=== PATIENT | male | born 1935 | race Caucasian/White ===

== ENCOUNTER 2022-10-16 11:44 | Emergency (ER) | payer MEDICARE, OTHER ==
[2022-10-16 12:03] VITALS: RESP 16
[2022-10-16] MEDS ORDERED: KETOROLAC 15 MG/ML 1 ML VIAL IM STA (12:33)
--- NOTE | 2022-10-16 12:38 | ED ---
General Adult HPI - General Chief complaint: Back Pain/Injury Stated complaint: fall Time Seen by Provider: 10/16/22 12:15 Source: patient, RN notes reviewed, old records reviewed Mode of arrival: ambulatory Limitations: no limitations - History of Present Illness Initial comments: This is an 87-year-old male who presents emergency Department complaining of lower back pain both on the right than the left. Patient denies any central back pain. Patient denies any rib pain. Patient denies hitting his head or hurting his neck. Patient denies any headache patient denies numbness weakness. Patient denies any chest pain. Patient denies any extremity pain. Patient states he fell after he lost his balance on . - Related Data Allergies Allergy/AdvReac Type Severity Reaction Status Date / Time No Known Allergies Allergy Verified 10/16/22 12:03 Review of Systems ROS Statement: Those systems with pertinent positive or pertinent negative responses have been documented in the HPI. ROS Other: All systems not noted in ROS Statement are negative. Past Medical History Additional Past Medical History / Comment(s): polio History of Any Multi-Drug Resistant Organisms: None Reported Past Surgical History: Appendectomy Past Psychological History: No Psychological Hx Reported Smoking Status: Never smoker Past Alcohol Use History: None Reported Past Drug Use History: None Reported General Exam - General Exam Comments Initial Comments: GENERAL: Patient is well-developed and well-nourished. Patient is nontoxic and well- hydrated and is in mild distress. ENT: Neck is soft and supple. No significant lymphadenopathy is noted. Oropharynx is clear. Moist mucous membranes. Neck has full range of motion without eliciting any pain. EYES: The sclera were anicteric and conjunctiva were pink and moist. Extraocular movements were intact and pupils were equal round and reactive to light. Eyelids were unremarkable. PULMONARY: Unlabored respirations. Good breath sounds bilaterally. No audible rales rhonchi or wheezing was noted. CARDIOVASCULAR: There is a regular rate and rhythm without any murmurs gallops or rubs. ABDOMEN: Soft and nontender with normal bowel sounds. SKIN: Skin is clear with no lesions or rashes and otherwise unremarkable. NEUROLOGIC: Patient is alert and oriented x3. Cranial nerves II through XII are grossly intact. Motor and sensory are also intact. Normal speech, volume and content. Symmetrical smile. MUSCULOSKELETAL: Normal extremities with adequate strength and full range of motion. Patient has some tenderness bilateral lower back. LYMPHATICS: No significant lymphadenopathy is noted PSYCHIATRIC: Normal psychiatric evaluation. Limitations: no limitations Course Vital Signs 10/16/22 11:58 Temperature 98.4 F Pulse Rate 56 L Respiratory 16 Rate Blood Pressure 110/74 O2 Sat by Pulse 98 Oximetry Medical Decision Making - Medical Decision Making Was pt. sent in by a medical professional or institution (, PA, STUD MASTER/MISTRESS, urgent care, hospital, or alf...) When possible be specific @ -No Did you speak to anyone other than the patient for history (EMS, parent, family, police, friend...)? What history was obtained from this source @ -No Did you review nursing and triage notes (agree or disagree)? Why? @ -I reviewed and agree with nursing and triage notes Were old charts reviewed (outside hosp., previous admission, EMS record, old EKG, old radiological studies, urgent care reports/EKG's, alf records)? Report findings @ -No old charts were reviewed Differential Diagnosis (chest pain, altered mental status, abdominal pain women, abdominal pain men, vaginal bleeding, weakness, fever, dyspnea, syncope, headache, dizziness, GI bleed, back pain, seizure, CVA, palpatations, mental health, musculoskeletal)? @ -Differential Musculoskeletal Muscular strain, contusion, ligament sprain, fracture, arthritis, septic arthritis, bursitis, cellulitis, muscle spasm, nerve compression, DVT, arterial occlusion, herpes zoster, electrolyte abnormality, tumor.... This is not meant to be in all inclusive list EKG interpreted by me (3pts min.). @ -As above X-rays interpreted by me (1pt min.). @ -X-ray of the pelvis and lumbosacral spine showed no acute abnormality. Lumbosacral spine showed quite a bit sclerotic disease CT interpreted by me (1pt min.). @ -None done U/S interpreted by me (1pt. min.). @ -None done What testing was considered but not performed or refused? (CT, X-rays, U/S, labs)? Why? @ -None What meds were considered but not given or refused? Why? @ -None Did you discuss the management of the patient with other professionals (professionals i.e. , CALISTA, STUD MASTER/MISTRESS, lab, RT, psych nurse, social services, svp research & ebusiness operations, teacher, custody officer, rn case manager hospice)? Give summary @ -No Was smoking cessation discussed for >3mins.? @ -No Was critical care preformed (if so, how long)? @ -No Were there social determinants of health that impacted care today? How? (Homelessness, low income, unemployed, alcoholism, drug addiction, transportation, low edu. Level, literacy, decrease access to med. care, [facility], rehab)? @ -No Was there de-escalation of care discussed even if they declined (Discuss DNR or withdrawal of care, Hospice)? DNR status @ -No What co-morbidities impacted this encounter? (DM, HTN, Smoking, COPD, CAD, Cancer, CVA, ARF, Chemo, Hep., AIDS, mental health diagnosis, sleep apnea, morbid obesity)? @ -None Was patient admitted / discharged? Hospital course, mention meds given and route, prescriptions, significant lab abnormalities, going to OR and other pertinent info. @ -Ages x-rays were negative for acute fractures. Patient did receive Toradol and it did help a little. Undiagnosed new problem with uncertain prognosis? @ -No Drug Therapy requiring intensive monitoring for toxicity (Heparin, Nitro, Insulin, Cardizem)? @ -No Were any procedures done? @ -No Diagnosis/symptom? @ -Lumbosacral strain Acute, or Chronic, or Acute on Chronic? @ -Acute Uncomplicated (without systemic symptoms) or Complicated (systemic symptoms)? @ -Uncomplicated Side effects of treatment? @ -No Exacerbation, Progression, or Severe Exacerbation? @ -No Poses a threat to life or bodily function? How? (Chest pain, [place], [place], pneumonia, PE, COPD, DKA, ARF, appy, cholecystitis, CVA, Diverticulitis, Homicidal, Suicidal, threat to staff... and all critical care pts) @ -No Disposition Clinical Impression: Strain of lumbar region Disposition: HOME SELF-CARE Condition: Good Instructions (If sedation given, give patient instructions): Low Back Strain (ED) Additional Instructions: Patient should take Motrin and Tylenol when necessary for pain Patient should return if there is any worsening or new symptoms Is patient prescribed a controlled substance at d/c from ED?: No Referrals: Bk Aponte Jr, [Primary Care Provider] - 1-2 days Time of Disposition: 13:26
--- NOTE | 2022-10-16 13:29 | XR ---
EXAMINATION TYPE: XR pelvis AP view DATE OF EXAM: 10/16/2022 CLINICAL HISTORY: pain TECHNIQUE: Single view the pelvis is submitted. FINDINGS: No evidence for fracture, dislocation or bony lesion. Joint spaces are well-preserved. S I joints appear symmetric. IMPRESSION: 1. No acute fracture or dislocation seen. ICD 10 NO FRACTURE, INITIAL EVALUATION
--- NOTE | 2022-10-16 13:34 | XR ---
EXAMINATION TYPE: XR lumbosacral spine min 4V DATE OF EXAM: 10/16/2022 CLINICAL HISTORY: pain COMPARISON: NONE TECHNIQUE: Frontal, lateral, and oblique images of the lumbar spine are obtained. FINDINGS: There are 5 lumbar type vertebral bodies identified. Loss of vertebral body height at L2 o f uncertain age and/or etiology mild in degree. Severe multilevel degenerative disc space narrowing t hinning from L2 through L5 S1. Right renal calculus suggested. IMPRESSION: Mild Loss of vertebral body height at L2 vertebral body of uncertain age and/or etiology .
[2022-10-16 13:58] VITALS: BP 112/68; PULSE 61; TEMP 98
== END 2022-10-16 14:33 | disposition home or self-care (01) ==
LOC: EC 11:44
DX: S39.012A Strain of muscle, fascia and tendon of lower back, initial encounter (principal); W18.30XA Fall on same level, unspecified, initial encounter
CPT/HCPCS: 72110; 72170; 99283; 96372; J1885

== ENCOUNTER → 2023-04-11 | Outpatient (CLI) | payer MEDICARE, OTHER ==
[2023-04-11 16:21] LABS: HCT 42.4 % (39.6-50.0); HGB 13.9 g/dL (13.0-17.0); MCH 32.4 pg (27.0-32.0); MCHC 32.8 g/dL (32.0-37.0); MCV 98.8 FL (80.0-97.0); Mean Platelet Volume 9.5 FL (9.5-12.2); NRBC Per 100 WBC 0 X 10*3/uL (0.00-0.01); Platelet Count 189 X 10*3/uL (140-440); RBC 4.29 X 10*6/uL (4.40-5.60); RDW 14.1 % (11.5-14.5); WBC 4.98 X 10*3/uL (4.50-10.00)
[2023-04-11 16:33] LABS: Blood Urea Nitrogen 25.8 mg/dL (9.0-27.0); Carbon Dioxide 22.6 mmol/L (21.6-31.8); Chloride 107 mmol/L (96-109); Potassium 4.3 mmol/L (3.5-5.5); Sodium 143 mmol/L (135-145)
== END | disposition home or self-care (01) ==
LOC: LABWHC1 11:04
PROVIDERS: ATTEND Internal Medicine Cardiovascular Disease
DX: I48.11 Longstanding persistent atrial fibrillation (principal)
CPT/HCPCS: 36415; 80051; 82565; 84443; 84520; 85027

== ENCOUNTER 2024-05-06 11:21 | Inpatient (IN) | payer MEDICARE, OTHER ==
--- NOTE | 2024-05-06 12:01 | ED ---
General Adult HPI - General Chief complaint: Urogenital Stated complaint: Abd pain,poss UTI Time Seen by Provider: 05/06/24 11:25 Source: patient, EMS, RN notes reviewed, old records reviewed Mode of arrival: EMS Limitations: no limitations - History of Present Illness Initial comments: This is an 88-year-old male who presents to the emergency department because he was having dark urine and complains of lower abdominal pain. Patient is a poor historian. Patient was unaware that he had a fever. Patient denied any chest pain or difficulty breathing. Patient had any cough. Patient denies any trauma. Patient denies any history of A-fib or irregular heartbeat - Related Data Home Medications Medication Instructions Recorded Confirmed Lovastatin [Mevacor] 20 mg PO HS 05/06/24 05/06/24 Metoprolol Succinate [Toprol XL] 50 mg PO DAILY 05/06/24 05/06/24 amLODIPine [Norvasc] 5 mg PO DAILY 05/06/24 05/06/24 Allergies Allergy/AdvReac Type Severity Reaction Status Date / Time No Known Allergies Allergy Verified 05/06/24 14:28 Review of Systems ROS Statement: Those systems with pertinent positive or pertinent negative responses have been documented in the HPI. ROS Other: All systems not noted in ROS Statement are negative. Past Medical History Additional Past Medical History / Comment(s): polio History of Any Multi-Drug Resistant Organisms: None Reported Past Surgical History: Appendectomy Past Psychological History: No Psychological Hx Reported Smoking Status: Never smoker Past Alcohol Use History: None Reported Past Drug Use History: None Reported General Exam - General Exam Comments Initial Comments: GENERAL: Patient is well-developed and well-nourished. Patient is nontoxic and well- hydrated and is in no acute distress. ENT: Neck is soft and supple. No significant lymphadenopathy is noted. Oropharynx is clear. Moist mucous membranes. Neck has full range of motion without eliciting any pain. EYES: The sclera were anicteric and conjunctiva were pink and moist. Extraocular movements were intact and pupils were equal round and reactive to light. Eyelids were unremarkable. PULMONARY: Unlabored respirations. Good breath sounds bilaterally. No audible rales rhonchi or wheezing was noted. CARDIOVASCULAR: Patient is tachycardic with an irregular rhythm. At 155 bpm ABDOMEN: Soft and nontender with normal bowel sounds. SKIN: Skin is clear with no lesions or rashes and otherwise unremarkable. NEUROLOGIC: Patient is alert and oriented x3. Cranial nerves II through XII are grossly intact. Motor and sensory are also intact. Normal speech, volume and content. Symmetrical smile. MUSCULOSKELETAL: Normal extremities with adequate strength and full range of motion. LYMPHATICS: No significant lymphadenopathy is noted PSYCHIATRIC: Normal psychiatric evaluation. Limitations: no limitations Course Vital Signs 05/06/24 05/06/24 05/06/24 11:22 11:38 12:39 Temperature 100.7 F H Pulse Rate 147 H 119 H Pulse Rate [ 116 H Historical Manuscripts Curator ] Respiratory 20 22 Rate Blood Pressure 108/78 102/81 O2 Sat by Pulse 95 96 Oximetry 05/06/24 05/06/24 13:26 13:32 Temperature 98.4 F Pulse Rate 81 Pulse Rate [ Historical Manuscripts Curator ] Respiratory 18 Rate Blood Pressure 88/56 O2 Sat by Pulse 96 Oximetry Medical Decision Making - Medical Decision Making EKG shows atrial fibrillation with rapid ventricular response at 155 bpm QRS is 85 QT interval 364 QTc is 351. Patient's EKG shows no ST segment elevation or depression EKG is interpreted by myself EKG shows atrial fibrillation 89 bpm QRS is 89 QT interval 3 9 QTc is 436. Patient's EKG shows no ST segment ovation or depression Was pt. sent in by a medical professional or institution (, PA, CHARGE ENTRY CLERK, urgent care, hospital, or usp...) When possible be specific @ -No Did you speak to anyone other than the patient for history (EMS, parent, family, police, friend...)? What history was obtained from this source @ -No Did you review nursing and triage notes (agree or disagree)? Why? @ -I reviewed and agree with nursing and triage notes Were old charts reviewed (outside hosp., previous admission, EMS record, old EKG, old radiological studies, urgent care reports/EKG's, usp records)? Report findings @ -No old charts were reviewed Differential Diagnosis? @ -Urinary tract infection, pyelonephritis, cystitis, this is not an all-incl usive list EKG interpreted by me (3pts min.). @ -As above X-rays interpreted by me (1pt min.). @ -Chest x-ray shows no acute abnormality CT interpreted by me (1pt min.). @ -None done U/S interpreted by me (1pt. min.). @ -None done What testing was considered but not performed or refused? (CT, X-rays, U/S, labs)? Why? @ -None What meds were considered but not given or refused? Why? @ -None Did you discuss the management of the patient with other professionals (professionals i.e. , PA, CHARGE ENTRY CLERK, lab, RT, psych nurse, medical social worker, farebox repairer, teacher, accounts officer, case management rn)? Give summary @ -I spoke with Dr. Rivers he agreed to admit the patient Was smoking cessation discussed for >3mins.? @ -No Was critical care preformed (if so, how long)? @ -35 minutes Were there social determinants of health that impacted care today? How? (Homelessness, low income, unemployed, alcoholism, drug addiction, transportation, low edu. Level, literacy, decrease access to med. care, residential, rehab)? @ -No Was there de-escalation of care discussed even if they declined (Discuss DNR or withdrawal of care, Hospice)? DNR status @ -No What co-morbidities impacted this encounter? (DM, HTN, Smoking, COPD, CAD, C[place] r, CVA, ARF, Chemo, Hep., AIDS, mental health diagnosis, sleep apnea, morbid obesity)? @ -None Was patient admitted / discharged? Hospital course, mention meds given and route, prescriptions, significant lab abnormalities, going to OR and other pertinent info. @ -Patient was initially in A-fib with rapid ventricular sponsor which was new onset. Patient was placed on heparin. Patient was started on Cardizem initially but patient heart rate slowed down and blood pressure dropped also Cardizem was stopped. Patient had a urinary tract infection so patient was given Rocephin 2 g IV push. Patient will be admitted for A-fib with rapid ventricular response that is new onset and a urinary tract infection. Undiagnosed new problem with uncertain prognosis? @ -No Drug Therapy requiring intensive monitoring for toxicity (Heparin, Nitro, Insulin, Cardizem)? @ -No Were any procedures done? @ -No Diagnosis/symptom? @ -Urinary tract infection Acute, or Chronic, or Acute on Chronic? @ -Acute Uncomplicated (without systemic symptoms) or Complicated (systemic symptoms)? @ -Comp Side effects of treatment? @ -No Exacerbation, Progression, or Severe Exacerbation? @ -No Poses a threat to life or bodily function? How? (Chest pain, [place], [place], pneumonia, PE, COPD, DKA, ARF, appy, cholecystitis, CVA, Diverticulitis, Homicidal, Suicidal, threat to staff... and all critical care pts) @ -Yes this can lead to sepsis and endorgan dysfunction Diagnosis/symptom? @ -A-fib with rapid ventricular response new onset Acute, or Chronic, or Acute on Chronic? @ -Acute Uncomplicated (without systemic symptoms) or Complicated (systemic symptoms)? @ -Complicated Side effects of treatment? @ -None Exacerbation, Progression, or Severe Exacerbation] @ -No Poses a threat to life or bodily function? @ -Yes this can lead to poor perfusion and endorgan dysfunction - Lab Data Result diagrams: 05/06/24 11:59 05/06/24 11:59 Lab Results 05/06/24 05/06/24 05/06/24 Range/Units 11:59 11:59 11:59 WBC 5.7 (3.8-10.6) k/uL RBC 3.85 L (4.30-5.90) m/uL Hgb 12.5 L (13.0-17.5) gm/dL Hct 37.4 L (39.0-53.0) % MCV 97.3 (80.0-100.0) fL MCH 32.4 (25.0-35.0) pg MCHC 33.3 (31.0-37.0) g/dL RDW 14.3 (11.5-15.5) % Plt Count 272 (150-450) k/uL MPV 7.8 Neutrophils % 93 % Lymphocytes % 4 % Monocytes % 1 % Eosinophils % 3 % Basophils % 0 % Neutrophils # 5.3 (1.3-7.7) k/uL Lymphocytes # 0.2 L (1.0-4.8) k/uL Monocytes # 0.0 (0-1.0) k/uL Eosinophils # 0.2 (0-0.7) k/uL Basophils # 0.0 (0-0.2) k/uL PT 12.2 (10.0-12.5) sec INR 1.1 (<1.2) APTT 18.8 L (22.0-30.0) sec Sodium (137-145) mmol/L Potassium (3.5-5.1) mmol/L Chloride (98-107) mmol/L Carbon Dioxide (22-30) mmol/L Anion Gap mmol/L BUN (9-20) mg/dL Creatinine (0.66-1.25) mg/dL Est GFR (CKD-EPI)AfAm (>60 ml/min/1.73 sqM) Est GFR (CKD-EPI)NonAf (>60 ml/min/1.73 sqM) Glucose (74-99) mg/dL Plasma Lactic Acid Braxton (0.7-2.0) mmol/L Calcium (8.4-10.2) mg/dL Magnesium (1.6-2.3) mg/dL Total Bilirubin (0.2-1.3) mg/dL AST (17-59) U/L ALT (4-49) U/L Alkaline Phosphatase (38-126) U/L Troponin I (0.000-0.034) ng/mL Total Protein (6.3-8.2) g/dL Albumin (3.5-5.0) g/dL TSH (0.465-4.680) mIU/L Urine Color Yellow Urine Appearance Cloudy (Clear) Urine pH 5.5 (5.0-8.0) Ur Specific [place] 1.014 (1.001-1.035) Urine Protein 1+ H (Negative) Urine Glucose (UA) Negative (Negative) Urine Ketones Negative (Negative) Urine Blood Large H (Negative) Urine Nitrite Positive (Negative) Urine Bilirubin Negative (Negative) Urine Urobilinogen <2.0 (<2.0) mg/dL Ur Leukocyte Esterase Large H (Negative) Urine RBC >182 H (0-5) /hpf Urine WBC 49 H (0-5) /hpf Ur Squamous Epith Cells <1 (0-4) /hpf Urine Bacteria Rare H (None) /hpf Hyaline Casts 1 (0-2) /lpf Urine Yeast (Budding) Few H (None) /hpf Influenza Type A (PCR) (Not Detectd) Influenza Type B (PCR) (Not Detectd) RSV (PCR) (Not Detectd) SARS-CoV-2 (PCR) (Not Detectd) 05/06/24 05/06/24 05/06/24 Range/Units 11:59 11:59 11:59 WBC (3.8-10.6) k/uL RBC (4.30-5.90) m/uL Hgb (13.0-17.5) gm/dL Hct (39.0-53.0) % MCV (80.0-100.0) fL MCH (25.0-35.0) pg MCHC (31.0-37.0) g/dL RDW (11.5-15.5) % Plt Count (150-450) k/uL MPV Neutrophils % % Lymphocytes % % Monocytes % % Eosinophils % % Basophils % % Neutrophils # (1.3-7.7) k/uL Lymphocytes # (1.0-4.8) k/uL Monocytes # (0-1.0) k/uL Eosinophils # (0-0.7) k/uL Basophils # (0-0.2) k/uL PT (10.0-12.5) sec INR (<1.2) APTT (22.0-30.0) sec Sodium 139 (137-145) mmol/L Potassium 4.5 (3.5-5.1) mmol/L Chloride 110 H (98-107) mmol/L Carbon Dioxide 17 L (22-30) mmol/L Anion Gap 12 mmol/L BUN 26 H (9-20) mg/dL Creatinine 0.94 (0.66-1.25) mg/dL Est GFR (CKD-EPI)AfAm 85 (>60 ml/min/1.73 sqM) Est GFR (CKD-EPI)NonAf 73 (>60 ml/min/1.73 sqM) Glucose 99 (74-99) mg/dL Plasma Lactic Acid Braxton (0.7-2.0) mmol/L Calcium 9.6 (8.4-10.2) mg/dL Magnesium 1.7 (1.6-2.3) mg/dL Total Bilirubin 1.5 H (0.2-1.3) mg/dL AST 29 (17-59) U/L ALT 23 (4-49) U/L Alkaline Phosphatase 87 (38-126) U/L Troponin I 0.041 H* (0.000-0.034) ng/mL Total Protein 6.4 (6.3-8.2) g/dL Albumin 4.1 (3.5-5.0) g/dL TSH 3.380 (0.465-4.680) mIU/L Urine Color Urine Appearance (Clear) Urine pH (5.0-8.0) Ur Specific [place] (1.001-1.035) Urine Protein (Negative) Urine Glucose (UA) (Negative) Urine Ketones (Negative) Urine Blood (Negative) Urine Nitrite (Negative) Urine Bilirubin (Negative) Urine Urobilinogen (<2.0) mg/dL Ur Leukocyte Esterase (Negative) Urine RBC (0-5) /hpf Urine WBC (0-5) /hpf Ur Squamous Epith Cells (0-4) /hpf Urine Bacteria (None) /hpf Hyaline Casts (0-2) /lpf Urine Yeast (Budding) (None) /hpf Influenza Type A (PCR) Not Detected (Not Detectd) Influenza Type B (PCR) Not Detected (Not Detectd) RSV (PCR) Not Detected (Not Detectd) SARS-CoV-2 (PCR) Not Detected (Not Detectd) 05/06/24 Range/Units 14:24 WBC (3.8-10.6) k/uL RBC (4.30-5.90) m/uL Hgb (13.0-17.5) gm/dL Hct (39.0-53.0) % MCV (80.0-100.0) fL MCH (25.0-35.0) pg MCHC (31.0-37.0) g/dL RDW (11.5-15.5) % Plt Count (150-450) k/uL MPV Neutrophils % % Lymphocytes % % Monocytes % % Eosinophils % % Basophils % % Neutrophils # (1.3-7.7) k/uL Lymphocytes # (1.0-4.8) k/uL Monocytes # (0-1.0) k/uL Eosinophils # (0-0.7) k/uL Basophils # (0-0.2) k/uL PT (10.0-12.5) sec INR (<1.2) APTT (22.0-30.0) sec Sodium (137-145) mmol/L Potassium (3.5-5.1) mmol/L Chloride (98-107) mmol/L Carbon Dioxide (22-30) mmol/L Anion Gap mmol/L BUN (9-20) mg/dL Creatinine (0.66-1.25) mg/dL Est GFR (CKD-EPI)AfAm (>60 ml/min/1.73 sqM) Est GFR (CKD-EPI)NonAf (>60 ml/min/1.73 sqM) Glucose (74-99) mg/dL Plasma Lactic Acid Braxton 1.6 (0.7-2.0) mmol/L Calcium (8.4-10.2) mg/dL Magnesium (1.6-2.3) mg/dL Total Bilirubin (0.2-1.3) mg/dL AST (17-59) U/L ALT (4-49) U/L Alkaline Phosphatase (38-126) U/L Troponin I (0.000-0.034) ng/mL Total Protein (6.3-8.2) g/dL Albumin (3.5-5.0) g/dL TSH (0.465-4.680) mIU/L Urine Color Urine Appearance (Clear) Urine pH (5.0-8.0) Ur Specific [place] (1.001-1.035) Urine Protein (Negative) Urine Glucose (UA) (Negative) Urine Ketones (Negative) Urine Blood (Negative) Urine Nitrite (Negative) Urine Bilirubin (Negative) Urine Urobilinogen (<2.0) mg/dL Ur Leukocyte Esterase (Negative) Urine RBC (0-5) /hpf Urine WBC (0-5) /hpf Ur Squamous Epith Cells (0-4) /hpf Urine Bacteria (None) /hpf Hyaline Casts (0-2) /lpf Urine Yeast (Budding) (None) /hpf Influenza Type A (PCR) (Not Detectd) Influenza Type B (PCR) (Not Detectd) RSV (PCR) (Not Detectd) SARS-CoV-2 (PCR) (Not Detectd) Disposition Clinical Impression: Atrial fibrillation with rapid ventricular response, New onset a-fib, Urinary tract infection Disposition: ADMITTED IP TO THIS HOSP Referrals: Bk Aponte Jr, [Primary Care Provider] - 1-2 days Time of Disposition: 14:54
[2024-05-06] MEDS: SODIUM CHLORIDE 0.9% 1,000 ML IV STA (12:11)
[2024-05-06 12:13] LABS: Basophils % (A) 0 %; Eosinophils # (A) 0.2 k/uL (0-0.7); Eosinophils % (A) 3 %; HCT 37.4 % (39.0-53.0); HGB 12.5 gm/dL (13.0-17.5); Lymphocytes # (A) 0.2 k/uL (1.0-4.8); Lymphocytes % (A) 4 %; MCH 32.4 pg (25.0-35.0); MCHC 33.3 g/dL (31.0-37.0); MCV 97.3 fL (80.0-100.0); Mean Platelet Volume 7.8; Monocytes % (A) 1 %; Neutrophils # (A) 5.3 k/uL (1.3-7.7); Neutrophils % (A) 93 %; Platelet Count 272 k/uL (150-450); RBC 3.85 m/uL (4.30-5.90); RDW 14.3 % (11.5-15.5); WBC 5.7 k/uL (3.8-10.6)
[2024-05-06] MEDS: SODIUM CHLORIDE 0.9% 1,000 ML IV ONE ×3 (12:14→15:15)
[2024-05-06] MEDS: ACETAMINOPHEN TAB 500 MG TAB PO STA (12:14)
[2024-05-06] MEDS: IBUPROFEN 600 MG TAB PO STA (12:15)
[2024-05-06] MEDS: DILTIAZEM 125 MG in SODIUM CHLORIDE 0.9% 100 ML IV SCH (12:18)
[2024-05-06 12:22] LABS: ALT 23 U/L (4-49); AST 29 U/L (17-59); African American GFR (CKD) 85 (>60 ml/min/1.73 sqM); Albumin 4.1 g/dL (3.5-5.0); Alkaline Phosphatase 87 U/L (38-126); Anion Gap 12 mmol/L; Blood Urea Nitrogen 26 mg/dL (9-20); Calcium 9.6 mg/dL (8.4-10.2); Carbon Dioxide 17 mmol/L (22-30); Chloride 110 mmol/L (98-107); Glucose 99 mg/dL (74-99); Magnesium 1.7 mg/dL (1.6-2.3); Non-African American GFR(CKD) 73 (>60 ml/min/1.73 sqM); Potassium 4.5 mmol/L (3.5-5.1); Sodium 139 mmol/L (137-145); Total Bilirubin 1.5 mg/dL (0.2-1.3); Total Protein 6.4 g/dL (6.3-8.2)
[2024-05-06] MEDS: DILTIAZEM DRIP BOLUS FROM BAG 1 MG SOLN IV ONE (12:22)
--- NOTE | 2024-05-06 12:36 | XR ---
EXAMINATION TYPE: XR chest 2V DATE OF EXAM: 05/06/2024 12:09 PM CLINICAL INDICATION:Male, 88 years old with history of dysrhythmia; [facility] COMPARISON: None TECHNIQUE: XR chest 2V Frontal view of the chest. FINDINGS: Lungs/Pleura: Mild elevation of the left hemidiaphragm. Right lung atelectasis. Prominent interstitia l markings bilaterally likely chronic in nature. No pneumothorax. Pulmonary vascularity: Unremarkable. Heart/mediastinum: Cardiomediastinal silhouette is unremarkable. Musculoskeletal: No acute osseous pathology. Other findings: None IMPRESSION: Right lung atelectasis with no acute cardiopulmonary disease/process. [facility], , 05/06/2024 12:34 PM
[2024-05-06 12:39] LABS: INR 1.1 (<1.2); Prothrombin Time 12.2 sec (10.0-12.5)
[2024-05-06] MEDS: MAGNESIUM SULFATE-D5W PMX 1 GM in DEXTROSE/WATER 1 100ML.BAG IVPB SCH (12:39)
[2024-05-06 12:45] LABS: Partial Thromboplastin Time 18.8 sec (22.0-30.0)
[2024-05-06 14:08] LABS: Appearance,Urine Cloudy (Clear); Bacteria,Urine Rare /hpf; Bilirubin,Urine Negative (Negative); Blood,Urine Large (Negative); Budding Yeast,Urine Few /hpf; Color,Urine Yellow; Glucose,Urine (UA) Negative (Negative); Hyaline Casts,Urine 1 /lpf (0-2); Ketones,Urine Negative (Negative); Leukocyte Esterase,Urine Large (Negative); Nitrite,Urine Positive (Negative); PH, Urine 5.5 (5.0-8.0); Protein,Urine 1+ (Negative); RBC,Urine >182 /hpf (0-5); Specific Gravity,Urine 1.014 (1.001-1.035); Squamous Epithelial Cell,Urine <1 /hpf (0-4); Urobilinogen,Urine <2.0 mg/dL (<2.0); WBC,Urine 49 /hpf (0-5)
[2024-05-06] MEDS: SODIUM CHLORIDE 0.9% 500 ML 500 ML IV ONE (14:32)
[2024-05-06] MEDS: cefTRIAXone IN SWFI 1,000 MG/10 ML SYRINGE IVP STA (14:32)
[2024-05-06] MEDS: HYDROCORTISONE SUCCINATE 100 MG/2 ML VIAL IV STA (14:33)
[2024-05-07] MEDS: HEPARIN SOD,PORK IN 0.45% NACL 25,000 UNIT in 0.45% NACL 1 250ML.BAG IV SCH (02:47)
[2024-05-07] MEDS: HEPARIN SODIUM 1,000 UN/ML (10ML VL) IV ONE (02:50)
--- NOTE | 2024-05-07 11:14 | P.CRDCN ---
History of Present Illness Consult date: 05/07/24 History of present illness: HISTORY OF PRESENTING ILLNESS 88-year-old who is new to our medical system. Patient is not able to provide any medical history because of his encephalopathy and prior history of dementia. History is obtained from medical charts. Apparently patient was having dark urine, lower abdominal pain. This was the reason for presentation to the [facility]. On admission he was noticed to be in atrial fibrillation with RVR. He also had elevation of troponin enzyme 0.04, 0.106. Social Hx: Family Hx: non contributary to current clinical scenario REVIEW OF SYSTEMS 14 point review of system is negative except what is mentioned above in HPI. PHYSICAL EXAMINATION Neck: Brisk carotid upstroke, no jugular venous distention. Lungs: Minimal crackles audible in lung bases Heart: Irregularly irregular pulse, mild systolic murmur audible Abdomen: Soft nontender, positive bowel sounds. Extremities: 1+ pitting edema in bilateral lower extremity. Warm to touch, clammy.. Neuro: Alert, not oriented to time place and person. Detailed neuro exam was not performed. ASSESSMENT Elevated troponin, likely type II NSTEMI in setting of demand supply mismatch Persistent atrial fibrillation. RVR on admission, currently rate controlled Mild CHF exacerbation Acute metabolic encephalopathy UTI Dementia Frailty PLAN Continue IV heparin drip for 48 hours Aspirin 81 mg, Lipitor 40 mg, Add metoprolol succinate 25 mg daily. Obtain updated echocardiogram Obtain NT-proBNP levels, magnesium levels, lipid panel, HbA1c, TSH levels Have left a voicemail and message to the family to provide me more medical information on him. Dawson Garay MD, FACC, RPVI Thank you for allowing [facility] to participate in this patient's care. Feel free to reach out in case of any followup questions. Past Medical History Additional Past Medical History / Comment(s): polio History of Any Multi-Drug Resistant Organisms: None Reported Past Surgical History: Appendectomy Past Psychological History: No Psychological Hx Reported Smoking Status: Never smoker Past Alcohol Use History: None Reported Past Drug Use History: None Reported Medications and Allergies Home Medications Medication Instructions Recorded Confirmed Type Lovastatin [Mevacor] 20 mg PO HS 05/06/24 05/06/24 History Metoprolol Succinate [Toprol XL] 50 mg PO DAILY 05/06/24 05/06/24 History amLODIPine [Norvasc] 5 mg PO DAILY 05/06/24 05/06/24 History Allergies Allergy/AdvReac Type Severity Reaction Status Date / Time No Known Allergies Allergy Verified 05/06/24 14:28 Physical Exam Vitals: Vital Signs Temp Pulse Pulse Resp BP Pulse Ox 05/07/24 10:17 91 18 111/76 96 05/07/24 08:34 104 H 18 107/70 96 05/07/24 07:25 82 18 107/65 97 05/07/24 06:00 97.6 F 83 19 105/70 95 05/07/24 05:30 93 16 113/61 96 05/07/24 04:00 98 18 106/61 97 05/07/24 03:30 70 11 L 108/67 98 05/07/24 02:30 80 17 102/70 97 05/07/24 01:45 77 12 96/66 99 05/07/24 01:20 97.7 F 05/07/24 00:37 75 20 103/69 96 05/06/24 22:43 70 12 92/75 96 05/06/24 20:52 79 18 89/60 96 05/06/24 18:40 98.2 F 05/06/24 18:00 18 96/55 95 05/06/24 15:46 73 18 96/56 95 05/06/24 13:32 98.4 F 05/06/24 13:26 81 18 88/56 96 05/06/24 12:39 119 H 22 102/81 96 05/06/24 11:38 116 H 05/06/24 11:22 100.7 F H 147 H 20 108/78 95 Intake and Output 05/06/24 05/07/24 05/07/24 22:59 06:59 14:59 Output Total 600 Balance -600 Output: Urine 600 Straight 600 Results 05/06/24 11:59 05/06/24 11:59 Cardiac Enzymes 05/06/24 05/06/24 05/07/24 Range/Units 11:59 11:59 06:53 AST 29 (17-59) U/L Troponin I 0.041 H* 0.106 H* (0.000-0.034) ng/mL Coagulation 05/06/24 05/07/24 Range/Units 11:59 09:03 PT 12.2 (10.0-12.5) sec APTT 18.8 L 64.7 H (22.0-30.0) sec CBC 05/06/24 Range/Units 11:59 WBC 5.7 (3.8-10.6) k/uL RBC 3.85 L (4.30-5.90) m/uL Hgb 12.5 L (13.0-17.5) gm/dL Hct 37.4 L (39.0-53.0) % Plt Count 272 (150-450) k/uL Comprehensive Metabolic Panel 05/06/24 Range/Units 11:59 Sodium 139 (137-145) mmol/L Potassium 4.5 (3.5-5.1) mmol/L Chloride 110 H (98-107) mmol/L Carbon Dioxide 17 L (22-30) mmol/L BUN 26 H (9-20) mg/dL Creatinine 0.94 (0.66-1.25) mg/dL Glucose 99 (74-99) mg/dL Calcium 9.6 (8.4-10.2) mg/dL AST 29 (17-59) U/L ALT 23 (4-49) U/L Alkaline Phosphatase 87 (38-126) U/L Total Protein 6.4 (6.3-8.2) g/dL Albumin 4.1 (3.5-5.0) g/dL Current Medications Generic Name Dose Route Start Last Admin Trade Name Freq PRN Reason Stop Dose Admin Diltiazem HCl 125 mg/ Sodium 125 mls @ 5 mls/hr 05/06/24 12:15 05/06/24 13:10 Chloride IV 0 mg/hr .Q24H DORIAN 0 mls/hr Infusion 5 MG/HR Ceftriaxone Sodium 2 gm/ 50 mls @ 100 mls/hr 05/07/24 09:00 05/07/24 08:39 Sodium Chloride IVPB 100 mls/hr Q24HR DORIAN Administration Protocol Heparin Sodium/Sodium Chloride 250 mls @ 7.62 mls/hr 05/07/24 02:30 05/07/24 02:47 25,000 unit/ Sodium Chloride IV 12 units/kg/hr .Q24H DORIAN 7.62 mls/hr Administration Protocol 12 UNITS/KG/HR Intake and Output 05/06/24 05/07/24 05/07/24 22:59 06:59 14:59 Output Total 600 Balance -600 Output: Urine 600 Straight 600 05/06/24 11:59 05/06/24 11:59
--- NOTE | 2024-05-07 15:29 | P.HPIM ---
History of Present Illness H&P Date: 05/07/24 Chief Complaint: rapid heart rate, abdominal pain patient is awake alert to person and place, he is currently A. 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 History of Any Multi-Drug Resistant Organisms: None Reported Past Surgical History: Appendectomy Past Psychological History: No Psychological Hx Reported Smoking Status: Never smoker Past Alcohol Use History: None Reported Past Drug Use History: None Reported Medications and Allergies Home Medications Medication Instructions Recorded Confirmed Type Lovastatin [Mevacor] 20 mg PO HS 05/06/24 05/06/24 History Metoprolol Succinate [Toprol XL] 50 mg PO DAILY 05/06/24 05/06/24 History amLODIPine [Norvasc] 5 mg PO DAILY 05/06/24 05/06/24 History Allergies Allergy/AdvReac Type Severity Reaction Status Date / Time No Known Allergies Allergy Verified 05/06/24 14:28 Physical Exam Osteopathic Statement: *. No significant issues noted on an osteopathic structural exam other than those noted in the History and Physical/Consult. Vitals: Vital Signs Temp Pulse Resp BP Pulse Ox 05/07/24 15:05 89 18 113/71 98 05/07/24 14:00 80 20 113/71 94 L 05/07/24 13:08 83 18 96 05/07/24 11:00 81 16 110/63 98 05/07/24 10:17 91 18 111/76 96 05/07/24 08:34 104 H 18 107/70 96 05/07/24 07:25 82 18 107/65 97 05/07/24 06:00 97.6 F 83 19 105/70 95 05/07/24 05:30 93 16 113/61 96 05/07/24 04:00 98 18 106/61 97 05/07/24 03:30 70 11 L 108/67 98 05/07/24 02:30 80 17 102/70 97 05/07/24 01:45 77 12 96/66 99 05/07/24 01:20 97.7 F 05/07/24 00:37 75 20 103/69 96 05/06/24 22:43 70 12 92/75 96 05/06/24 20:52 79 18 89/60 96 05/06/24 18:40 98.2 F 05/06/24 18:00 18 96/55 95 05/06/24 15:46 73 18 96/56 95 Intake and Output 05/07/24 05/07/24 05/07/24 06:59 14:59 22:59 Output Total 600 350 Balance -600 -350 Output: Urine 600 350 Straight 600 350 General: [Patient awake, alert and oriented times 3. Patient in no acute d istress.] HEENT: [PERRL. EOMI. No pharyngeal erythema or exudate.] Neck: [No adenopathy.] Cardiac: [Heart regular in rate and rhythm. No S3. No S4. No clicks, rubs. No murmur.] Lungs: [Clear to auscultation bilaterally.] Abdomen: [No mass. No organomegaly. Bowel sounds presnt and normoactive in all 4 quadrants.] Extremes: [No edema no cyanosis no claudication normal pulses] : normal male genitalia Musculoskeletal: [No joint erythema, edema or tenderness.] Skin: [No rash.] Neurologic: [No lateralizing deficits. CN II - XII grossly intact.] Lymphatic: [No adenopathy.] Results CBC & Chem 7: 05/06/24 11:59 05/06/24 11:59 Labs: Abnormal Lab Results - Last 24 Hours (Table) 05/07/24 05/07/24 Range/Units 06:53 09:03 APTT 64.7 H (22.0-30.0) sec Troponin I 0.106 H* (0.000-0.034) ng/mL Thrombosis Risk Factor Assmnt - DVT/VTE Prophylaxis DVT/VTE Prophylaxis: Pharmacologic Prophylaxis ordered Assessment and Plan (1) Non-ST elevated myocardial infarction (non-STEMI) Current Visit: Yes Status: Acute Code(s): I21.4 - NON-ST ELEVATION (NSTEMI) MYOCARDIAL INFARCTION SNOMED Code(s): 77606382 (2) Atrial fibrillation with rapid ventricular response Current Visit: Yes Status: Acute Code(s): I48.91 - UNSPECIFIED ATRIAL FIBRILLATION SNOMED Code(s): 747234732585354 (3) New onset a-fib Current Visit: Yes Status: Acute Code(s): I48.91 - UNSPECIFIED ATRIAL FIBRILLATION SNOMED Code(s): 87393659 (4) Urinary tract infection Current Visit: Yes Status: Acute Code(s): N39.0 - URINARY TRACT INFECTION, SITE NOT SPECIFIED SNOMED Code(s): 89424453 Plan: patient admitted to the hospital Cardiology consult was obtained Diagnosis suggestive of non-STEMI A. fib with rapid ventricular response Elevated troponins Time with Patient: Greater than 30
[2024-05-07] MEDS: METOPROLOL SUCCINATE (ER) 50 MG TAB.ER.24H PO SCH (17:00)
[2024-05-07] MEDS: ATORVASTATIN 10 MG TAB PO SCH (20:55)
[2024-05-08] MEDS: amLODIPine 5 MG TAB PO SCH (08:57)
--- NOTE | 2024-05-08 14:40 | P.PN ---
Subjective HISTORY OF PRESENT ILLNESS: 05/07/2024. Per Dr. Garay 88-year-old who is new to our medical system. Patient is not able to provide any medical history because of his encephalopathy and prior history of dementia. History is obtained from medical charts. Apparently patient was having dark urine, lower abdominal pain. This was the reason for presentation to the hospital. On admission he was noticed to be in atrial fibrillation with RVR. He also had elevation of troponin enzyme 0.04, 0.106. 05/08/2024 Patient examined this morning at the bedside. Patient currently denies any chest pain or pressure. He denies shortness of breath. He remains on IV heparin. Telemetry reveals atrial fibrillation in the 90s. Blood cultures are positive for gram-positive cocci in clusters. PHYSICAL EXAM: VITAL SIGNS: Reviewed. GENERAL: Well-developed in no acute distress. NECK: Supple. No JVD or thyromegaly LUNGS: Respirations even and unlabored. Lungs essentially clear to auscultation bilaterally. HEART: Irregular rate and rhythm. S1 and S2 heard. EXTREMITIES: Normal range of motion. No clubbing or cyanosis. Peripheral pulses intact. No lower extremity edema ASSESSMENT: Atrial fibrillation with RVR, duration unknown, possibly new onset Elevated troponin, suspect type II ND secondary to oxygen supply/demand mismatch Bacteremia, blood cultures positive for gram-positive cocci in clusters Urinary tract infection Metabolic encephalopathy History of dementia History of Parkinson's disease PLAN: 2D echo pending. Await results Add aspirin 81 mg daily Continue current dose of metoprolol succinate 50 mg daily Continue telemetry monitoring Increase atorvastatin to 40 mg at night Continue IV heparin. If no plans for any invasive testing, will transition to Eliquis tomorrow We will further discuss need for ischemic workup tomorrow with Dr. Pickering, patient's primary skiver machine Further recommendations pending patient course Nurse practitioner note has been reviewed by physician. Signing provider agrees with the documented findings, assessment, and plan of care documented by REFRACTORY REPAIRER as a scribe. Objective - Vital Signs Vital signs: Vital Signs Temp 98.2 F 05/08/24 11:45 Pulse 80 05/08/24 13:29 Resp 17 05/08/24 13:29 BP 110/70 05/08/24 11:45 Pulse Ox 94 L 05/08/24 11:45 FiO2 Intake & Output 12/05/08/24 05/08/24 18:59 06:59 18:59 Intake Total 200 10 716 Output Total 350 975 Balance -150 -965 716 Weight 63.503 kg 79.5 kg Intake: IV 10 Invasive Line 2 10 Oral 200 716 Output: Urine 350 975 Straight 350 Other: Voiding Method Indwelling Catheter - Labs CBC & Chem 7: 05/06/24 11:59 05/06/24 11:59 Labs: Abnormal Lab Results - Last 24 Hours (Table) 05/08/24 Range/Units 06:32 APTT 40.9 H (22.0-30.0) sec Microbiology - Last 24 Hours (Table) 05/06/24 14:24 Blood Culture Gram Stain - Preliminary Blood Blood Culture - Preliminary Molecular ID 05/06/24 11:59 Urine Culture - Final Urine,Clean Catch
[2024-05-08] MEDS: ASPIRIN 81 MG PO SCH (16:36)
[2024-05-08] MEDS: ATORVASTATIN 40 MG TAB PO SCH (20:55)
--- NOTE | 2024-05-09 11:27 | CA ---
Transthoracic Echo Report Name: Dwayne Baron Age: 88 Gender: M : 1935 Exam Date: 05/09/2024 08:23 Exam Location: [facility] Ht (in): 71 Wt (lb): 140 Ordering Physician: Dawson Garay MD ([id number]) Attending/Referring Phys: Public Policy Mediator Kena Garcia RDCS Procedure CPT: Indications: nstemi Cardiac Hx: Technical Quality: Good Contrast 1: Total Dose (mL): Contrast 2: Total Dose (mL): MEASUREMENTS (Male / Female) Normal Values 2D ECHO LV Diastolic Diameter PLAX 3.8 cm 4.2 - 5.9 / 3.9 - 5.3 cm LV Systolic Diameter PLAX 3.0 cm IVS Diastolic Thickness 1.7 cm 0.6 - 1.0 / 0.6 - 0.9 cm LVPW Diastolic Thickness 1.7 cm 0.6 - 1.0 / 0.6 - 0.9 cm LV Relative Wall Thickness 0.9 RV Internal Dim ED PLAX 3.8 cm LA Systolic Diameter LX 4.3 cm 3.0 - 4.0 / 2.7 - 3.8 cm LV Diastolic Volume MOD 4C 59.5 cm??? LV Systolic Volume MOD 4C 28.3 cm??? LV Ejection Fraction MOD 4C 52.4 % LV Cardiac Index MOD 4C 1545.2 cm???/min???m??? LV Diastolic Length 4C 7.5 cm LV Systolic Length 4C 6.4 cm LV Diastolic Volume MOD 2C 69.1 cm??? LV Systolic Volume MOD 2C 32.1 cm??? LV Ejection Fraction MOD 2C 53.5 % LV Cardiac Index MOD 2C 1835.3 cm???/min???m??? LV Diastolic Length 2C 7.4 cm LV Systolic Length 2C 6.3 cm LA Volume 157.2 cm??? 18 - 58 / 22 - 52 cm??? LA Volume Index 88.6 cm???/m??? 16 - 28 cm???/m??? M-MODE Aortic Root Diameter MM 3.6 cm AV Cusp Separation MM 2.5 cm DOPPLER MV Area PHT 4.7 cm??? MV Deceleration Time 124.7 ms TR Peak Velocity 266.3 cm/s TR Peak Gradient 28.4 mmHg Right Ventricular Systolic Press 33.3 mmHg FINDINGS Left Ventricle Left ventricular ejection fraction is estimated at 50-55 %. Small left ventricular cavity. Severely increased septal wall thickness. No obvious regional wall motion abnormalities. Right Ventricle Moderate right ventricular dilatation. Mild pulmonary hypertension. Right Atrium Severe right atrial dilatation. No right atrial thrombus or mass seen. Left Atrium Mildly increased left atrial diameter. Severely increased left atrial volume. Moderately increased left atrial area. No left atrial thrombus or mass present. Mitral Valve Mitral valve thickened. Mild mitral annular calcification. Mild mitral regurgitation. Aortic Valve Trileaflet aortic valve. No aortic valve stenosis or regurgitation. Tricuspid Valve Structurally normal tricuspid valve. Mild tricuspid regurgitation. Pulmonic Valve Structurally normal pulmonic valve. No pulmonic regurgitation. Pericardium No pericardial or pleural effusion. Aorta Normal size aortic root and proximal ascending aorta. CONCLUSIONS Normal LV function Mild mitral regurgitation Previewed by: Dr. Manuelito Pickering MD (Electronically Signed) Final Date: 09 May 2024 11:26
[2024-05-09] MEDS: APIXABAN 5 MG TAB PO SCH (11:50)
--- NOTE | 2024-05-09 12:14 | P.PN ---
Subjective HISTORY OF PRESENT ILLNESS: 05/07/2024. Per Dr. Garay 88-year-old who is new to our medical system. Patient is not able to provide any medical history because of his encephalopathy and prior history of dementia. History is obtained from medical charts. Apparently patient was having dark urine, lower abdominal pain. This was the reason for presentation to the hospital. On admission he was noticed to be in atrial fibrillation with RVR. He also had elevation of troponin enzyme 0.04, 0.106. 05/08/2024 Patient examined this morning at the bedside. Patient currently denies any chest pain or pressure. He denies shortness of breath. He remains on IV heparin. Telemetry reveals atrial fibrillation in the 90s. Blood cultures are positive for gram-positive cocci in clusters. 05/09/2024 Patient examined this morning at the bedside. Patient currently denies chest pain or pressure. He denies shortness of breath. Vital signs are stable. He remains on IV heparin. Telemetry reveals atrial fibrillation with controlled ventricular rate. Echocardiogram completed revealing ejection fraction 50 to 55%, mild pulmonary hypertension, mild mitral regurgitation, mild tricuspid regurgitation. PHYSICAL EXAM: VITAL SIGNS: Reviewed. GENERAL: Well-developed in no acute distress. NECK: Supple. No JVD or thyromegaly LUNGS: Respirations even and unlabored. Lungs essentially clear to auscultation bilaterally. HEART: Irregular rate and rhythm. S1 and S2 heard. EXTREMITIES: Normal range of motion. No clubbing or cyanosis. Peripheral pulses intact. No lower extremity edema ASSESSMENT: Atrial fibrillation with RVR, duration unknown, possibly new onset Elevated troponin, suspect type II OR secondary to oxygen supply/demand mismatch Bacteremia, blood cultures positive for gram-positive cocci in clusters Urinary tract infection Metabolic encephalopathy History of dementia History of Parkinson's disease PLAN: Discontinue IV heparin. Begin Eliquis 5 mg twice a day Continue additional cardiac medications No plans for inpatient ischemic workup/cardiac catheterization Consult infectious disease secondary to positive blood cultures Further recommendations pending patient course Nurse practitioner note has been reviewed by physician. Signing provider agrees with the documented findings, assessment, and plan of care documented by GENERAL INTERNAL MEDICINE DOCTOR as a scribe. Objective - Vital Signs Vital signs: Vital Signs Temp 97.5 F L 05/09/24 09:06 Pulse 88 05/09/24 11:52 Resp 18 05/09/24 11:52 BP 99/65 05/09/24 11:52 Pulse Ox 98 05/09/24 11:52 FiO2 Intake & Output 05/08/24 05/09/24 05/09/24 18:59 06:59 18:59 Intake Total 716 240 Output Total 500 600 600 Balance 216 -600 -360 Weight 80.5 kg Intake: Oral 716 240 Output: Urine 500 600 600 Other: Voiding Method Indwelling Catheter Indwelling Catheter Indwelling Catheter - Labs CBC & Chem 7: 05/06/24 11:59 05/06/24 11:59 Labs: Abnormal Lab Results - Last 24 Hours (Table) 05/09/24 Range/Units 09:41 APTT 39.7 H (22.0-30.0) sec Microbiology - Last 24 Hours (Table) 05/06/24 14:24 Blood Culture Gram Stain - Preliminary Blood Blood Culture - Preliminary Molecular ID
--- NOTE | 2024-05-09 13:47 | P.PN ---
Subjective Progress Note Date: 05/09/24 Principal diagnosis: Pelvic pain, non-STEMI Patient is well-known to my practice presented to the hospital with pelvic pain, labs revealed elevated troponin,, This patient is 88 years old with a echocardiogram revealing EF well-preserved of 50 to 55%, my recommendation to the patient and the family has been to treat his urinary tract infection get patient into outpatient rehab for ambulation training secondary to postpolio syndrome and ability patient is an excellent candidate for outpatient rehab will continue to follow cardiac evaluation continue apixaban continue all recomm endations Objective - Vital Signs Vital signs: Vital Signs Temp 97.5 F L 05/09/24 09:06 Pulse 88 05/09/24 11:52 Resp 18 05/09/24 11:52 BP 99/65 05/09/24 11:52 Pulse Ox 98 05/09/24 11:52 FiO2 Intake & Output 05/08/24 05/09/24 05/09/24 18:59 06:59 18:59 Intake Total 716 240 Output Total 500 600 600 Balance 216 -600 -360 Weight 80.5 kg Intake: Oral 716 240 Output: Urine 500 600 600 Other: Voiding Method Indwelling Catheter Indwelling Catheter Indwelling Catheter - Exam My physical exam this patient is awake alert oriented x 3 vital signs are stable patient is afebrile, this patient is in good spirits HEENT PERRLA EOMI Lungs are clear Heart is regularly irregular rate is controlled Abdomen is flat soft nontender Extremities demonstrate left side atrophy and weakness secondary to postpolio syndrome - Labs CBC & Chem 7: 05/06/24 11:59 05/06/24 11:59 Labs: Abnormal Lab Results - Last 24 Hours (Table) 05/09/24 Range/Units 09:41 APTT 39.7 H (22.0-30.0) sec Microbiology - Last 24 Hours (Table) 05/06/24 14:24 Blood Culture Gram Stain - Preliminary Blood Blood Culture - Preliminary Molecular ID Assessment and Plan (1) Non-ST elevated myocardial infarction (non-STEMI) Current Visit: Yes Status: Acute Code(s): I21.4 - NON-ST ELEVATION (NSTEMI) MYOCARDIAL INFARCTION SNOMED Code(s): 85431043 (2) Atrial fibrillation with rapid ventricular response Current Visit: Yes Status: Acute Code(s): I48.91 - UNSPECIFIED ATRIAL FIBRILLATION SNOMED Code(s): 146032623931959 (3) New onset a-fib Current Visit: Yes Status: Acute Code(s): I48.91 - UNSPECIFIED ATRIAL FIBRILLATION SNOMED Code(s): 26914621 (4) Urinary tract infection Current Visit: Yes Status: Acute Code(s): N39.0 - URINARY TRACT INFECTION, SITE NOT SPECIFIED SNOMED Code(s): 63957519 (5) Post-polio syndrome Current Visit: Yes Status: Acute Code(s): G14 - POSTPOLIO SYNDROME SNOMED Code(s): 68528155 Plan: patient admitted to the hospital Cardiology consult was obtained Diagnosis suggestive of non-STEMI A. fib with rapid ventricular response Elevated troponins EF well preserved post polio syndrome with debility uti continue iv antibiotics Anticipate rehab placement Time with Patient: Greater than 30
[2024-05-10 00:15] LABS: Amorphous Sediment,Urine Few /hpf; Appearance,Urine Cloudy (Clear); Bacteria,Urine Occasional /hpf; Bilirubin,Urine Negative (Negative); Blood,Urine Large (Negative); Color,Urine Yellow; Glucose,Urine (UA) Negative (Negative); Hyaline Casts,Urine 23 /lpf (0-2); Ketones,Urine Negative (Negative); Leukocyte Esterase,Urine Large (Negative); Mucus,Urine Rare /hpf; Nitrite,Urine Negative (Negative); Protein,Urine Trace (Negative); RBC,Urine >182 /hpf (0-5); Specific Gravity,Urine 1.016 (1.001-1.035); Squamous Epithelial Cell,Urine 1 /hpf (0-4); Urobilinogen,Urine <2.0 mg/dL (<2.0); WBC,Urine 38 /hpf (0-5)
[2024-05-10 08:42] LABS: African American GFR (CKD) 81 (>60 ml/min/1.73 sqM); Anion Gap 10 mmol/L; Blood Urea Nitrogen 21 mg/dL (9-20); Carbon Dioxide 24 mmol/L (22-30); Chloride 105 mmol/L (98-107); Glucose 90 mg/dL (74-99); Non-African American GFR(CKD) 70 (>60 ml/min/1.73 sqM); Sodium 139 mmol/L (137-145)
--- NOTE | 2024-05-10 10:08 | P.CONS ---
History of Present Illness - Reason for Consult Consult date: 05/09/24 Positive blood culture Requesting physician: Phuong Harris - Chief Complaint Lower abdominal pain and dark urine x few days - History of Present Illness Patient is a 88-year-old male with a past medical history significant for polio, possible dementia, patient was brought into the hospital 3 days ago for evaluation of lower abdominal pain and dark urine but any symptom was going on for a day or 2 before the patient has been brought to the hospital he was not very clear about any fever or any chills patient did have a urine retention requiring Mcneil catheter placement patient did have a temperature of 100.7 F on admission that has subsequently resolved patient was tachycardic subsequently resolved not hypotensive or hypoxic and no need for supplemental oxygen patient did have white count of 5.7 on admission creatinine 0.94 did have a positive UA no urine culture reported to be negative patient did have blood culture positive for gram-positive cocci that has prompted this infectious disease consultation patient did tested negative for influenza RSV and COVID and did have a chest x- ray right lung atelectasis with no acute cardiopulmonary disease process patient did have an echocardiogram normal LV function mild mitral regurgitation Review of Systems Positive point and negatives has been mentioned in the HPI, complete review of systems was performed and all other systems are negative Past Medical History Additional Past Medical History / Comment(s): polio, possible dementia History of Any Multi-Drug Resistant Organisms: None Reported Past Surgical History: Appendectomy Additional Past Surgical History / Comment(s): knee replacement Past Psychological History: No Psychological Hx Reported Smoking Status: Never smoker Past Alcohol Use History: None Reported Past Drug Use History: None Reported Medications and Allergies Home Medications Medication Instructions Recorded Confirmed Type Lovastatin [Mevacor] 20 mg PO HS 05/06/24 05/06/24 History Metoprolol Succinate [Toprol XL] 50 mg PO DAILY 05/06/24 05/06/24 History amLODIPine [Norvasc] 5 mg PO DAILY 05/06/24 05/06/24 History Allergies Allergy/AdvReac Type Severity Reaction Status Date / Time No Known Allergies Allergy Verified 05/06/24 14:28 Physical Exam Vitals: Vital Signs Temp Pulse Resp BP BP Pulse Ox 05/09/24 11:52 88 18 99/65 98 05/09/24 09:06 97.5 F L 84 18 117/68 97 05/09/24 03:30 97.7 F 75 17 130/75 97 05/09/24 01:19 56 L 17 05/09/24 00:00 97.7 F 56 L 17 120/71 99 05/08/24 20:00 97.7 F 61 17 114/73 94 L 05/08/24 16:00 98.2 F 81 17 109/68 95 05/08/24 13:29 80 17 Intake and Output 05/08/24 05/09/24 05/09/24 22:59 06:59 14:59 Intake Total 240 Output Total 0 600 600 Balance 0 -600 -360 Intake: Oral 240 Output: Urine 0 600 600 Other: Voiding Method Indwelling Catheter Indwelling Catheter Indwelling Catheter Weight 80.5 kg GENERAL DESCRIPTION: Elderly male lying in bed, no distress. No tachypnea or accessory muscle of respiration use. HEENT: Shows Pallor , no scleral icterus. Oral mucous membrane is dry. NECK: Trachea central, no thyromegaly. LUNGS: Unlabored breathing. Clear to auscultation anteriorly. 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 HEART: S1, S2, regular rate and rhythm. ABDOMEN: Soft, no tenderness , guarding or rigidity, no organomegaly EXTREMITIES: No edema of feet. SKIN: No rash, no masses palpable. NEUROLOGICAL: The patient is awake, alert, oriented x3, mood and affect normal. Results CBC & Chem 7: 05/06/24 11:59 05/10/24 07:26 Labs: Abnormal Lab Results - Last 24 Hours (Table) 05/09/24 Range/Units 09:41 APTT 39.7 H (22.0-30.0) sec Microbiology - Last 24 Hours (Table) 05/06/24 14:24 Blood Culture Gram Stain - Preliminary Blood Blood Culture - Preliminary Molecular ID Assessment and Plan (1) Positive blood culture Current Visit: Yes Status: Acute Code(s): R78.81 - BACTEREMIA SNOMED Code(s): 726068526 (2) Urinary tract infection Current Visit: Yes Status: Acute Code(s): N39.0 - URINARY TRACT INFECTION, SITE NOT SPECIFIED SNOMED Code(s): 61274836 Plan: 1patient presented to hospital with lower abdominal pain hide dark urine he did have urine retention requiring Mcneil catheter placement patient did have fever elevated white count meeting criteria for SIRS possible sepsis related to the UTI likely from to the gram-negative pathogen though initial urine culture have been reported negative. 2patient did have positive blood culture with gram-positive cocci with staph epi could be related to the UTI versus concurrent condition. 3blood cultures, UA and urine cultures will be repeated. 4keeping in mind clinical improvement with Rocephin will be continued on hold on adding vancomycin at this point Family the bedside question answered We will follow on clinical condition and cultures to further adjust medication if needed Thank you for this consultation we will follow the patient along with you Dictation was produced using [employer] dictation software. please excuse any grammatical, word or spelling errors. Time with Patient: Greater than 30
--- NOTE | 2024-05-10 12:30 | P.PN ---
Alex Dias is an 88-year-old male patient with a history of polio syndrome. He previously was being treated for hypertension hyperlipidemia. Several days ago he became dizzy and had fallen was not able to get up and walk very well. He was found to have a UTI along with A-fib with RVR. Initial troponins were abnormal and he appeared to have a type II myocardial infarction. May 10, 2024: He is resting comfortably. He is without complaint. He has a Mcneil catheter to gravity. His family is at bedside. Before this he ambulated with a walker. He is not able to get out of bed or ambulate at all at this time. He like him to go to [facility]. Most recent laboratory chemistries are normal. Alysis done yesterday showed large leuks negative nitrates minimal squamous epithelial cells. Blood cultures are positive for staph epidermis, also showed this. Infectious disease has been consulted. Cardiology have cleared him from their point of view. Plan on amlodipine for heart rate blood pressure control, apixaban for anticoagulation, aspirin for antiplatelet effect, atorvastatin for hyperlipidemia, ceftriaxone for antibiotic coverage, and meto prolol for heart rate control. Objective - Vital Signs Vital signs: Vital Signs Temp 97.3 F L 05/10/24 11:48 Pulse 86 05/10/24 11:48 Resp 18 05/10/24 11:48 BP 111/69 05/10/24 11:48 Pulse Ox 91 L 05/10/24 11:48 FiO2 Intake & Output 05/09/24 05/10/24 05/10/24 18:59 06:59 18:59 Intake Total 490 20 10 Output Total 1150 1200 500 Balance -660 -1180 -490 Weight 72.5 kg Intake: IV 10 20 10 Invasive Line 2 10 20 10 Oral 480 Output: Urine 1150 1200 500 Other: Voiding Method Indwelling Catheter Indwelling Catheter Indwelling Catheter - Exam General: The patient is awake and alert, elderly male lying supine in bed. Family is at bedside Neck: The neck is supple, there is no thyromegaly, lymphadenopathy, tenderness or JVD. Cardiovascular: S1S2 is normal, There is a regular rate and rhythm. 1/6 systolic murmur, no rub or gallop is appreciated. Respiratory: Lungs are clear to auscultation bilaterally, respirations are non-labored, breath sounds are equal. Gastrointestinal: Soft, non-distended, non-tender abdomen without masses or organomegaly noted. There is no rebound or guarding present. Bowel sounds are unremarkable. : Mcneil catheter to gravity Musculoskeletal: Normal ROM, no tenderness, There is no pedal edema. There is no calf tenderness or swelling. No cords were appreciated. Neurological: CN II-XII intact, there are no obvious motor or sensory deficits. Coordination appears grossly intact. Speech is normal. Skin: Skin is warm and dry and no rashes or lesions are noted. - Labs CBC & Chem 7: 05/06/24 11:59 05/10/24 07:26 Labs: Abnormal Lab Results - Last 24 Hours (Table) 05/09/24 05/10/24 Range/Units 23:50 07:26 BUN 21 H (9-20) mg/dL Urine Protein Trace H (Negative) Urine Blood Large H (Negative) Ur Leukocyte Esterase Large H (Negative) Urine RBC >182 H (0-5) /hpf Urine WBC 38 H (0-5) /hpf Amorphous Sediment Few H (None) /hpf Urine Bacteria Occasional H (None) /hpf Hyaline Casts 23 H (0-2) /lpf Urine Mucus Rare H (None) /hpf Microbiology - Last 24 Hours (Table) 05/06/24 14:24 Blood Culture Gram Stain - Preliminary Blood Blood Culture - Preliminary Staphylococcus epidermidis Molecular ID Assessment and Plan (1) Cystitis Current Visit: Yes Status: Acute Code(s): N30.90 - CYSTITIS, UNSPECIFIED WITHOUT HEMATURIA SNOMED Code(s): 09927375 (2) Debility Current Visit: Yes Status: Acute Code(s): R53.81 - OTHER MALAISE SNOMED Code(s): 59393094 (3) Gait abnormality Current Visit: Yes Status: Acute Code(s): R26.9 - UNSPECIFIED ABNORMALITIES OF GAIT AND MOBILITY SNOMED Code(s): 08603208 (4) Atrial fibrillation with rapid ventricular response Current Visit: Yes Status: Acute Code(s): I48.91 - UNSPECIFIED ATRIAL FIBRILLATION SNOMED Code(s): 877475186490057 (5) New onset a-fib Current Visit: Yes Status: Acute Code(s): I48.91 - UNSPECIFIED ATRIAL FIBRILLATION SNOMED Code(s): 10464821 (6) Non-ST elevated myocardial infarction (non-STEMI) Current Visit: Yes Status: Acute Code(s): I21.4 - NON-ST ELEVATION (NSTEMI) MYOCARDIAL INFARCTION SNOMED Code(s): 40057395 (7) Positive blood culture Current Visit: Yes Status: Acute Code(s): R78.81 - BACTEREMIA SNOMED Code(s): 366311841 (8) Post-polio syndrome Current Visit: Yes Status: Acute Code(s): G14 - POSTPOLIO SYNDROME SNOMED Code(s): 26564889 Plan: Will repeat labs in a.m., plan on any for him, wait on further recommendations from infectious disease we will plan to discontinue his Mcneil catheter tomorrow at 6 AM to see if he is voiding independently. Otherwise a consult with urology may be needed. Reevaluate in next 24 hours
--- NOTE | 2024-05-10 12:40 | P.PN ---
Subjective Progress Note Date: 05/10/24 Principal diagnosis: Reason for follow-up is UTI and positive blood culture Patient is a 88-year-old male with a past medical history significant for polio, possible dementia, patient was brought into the hospital for evaluation lower abdominal pain and dysuria has been diagnosed with a UTI also required Mcneil catheter for urinary retention did have a positive blood culture prompting this consultation On today's evaluation that is 05/10/2024, Patient is afebrile patient is currently on room air and denies having any shortness of breath, the patient denies any chest pain or cough, the patient denies any nausea vomiting did not have any abdominal pain and no diarrhea patient did have a creatinine 0.9 8 repeat UA is positive blood culture with staph epi Objective - Vital Signs Vital signs: Vital Signs Temp 97.7 F 05/10/24 08:54 Pulse 91 05/10/24 08:54 Resp 18 05/10/24 08:54 BP 113/78 05/10/24 08:54 Pulse Ox 97 05/10/24 08:54 FiO2 Intake & Output 05/09/24 05/10/24 05/10/24 18:59 06:59 18:59 Intake Total 490 20 10 Output Total 1150 1200 Balance -660 -1180 10 Weight 72.5 kg Intake: IV 10 20 10 Invasive Line 2 10 20 10 Oral 480 Output: Urine 1150 1200 Other: Voiding Method Indwelling Catheter Indwelling Catheter Indwelling Catheter - Exam GENERAL DESCRIPTION: An elderly male lying in bed in no distress RESPIRATORY SYSTEM: Unlabored breathing , decreased breath sounds at bases HEART: S1 S2 regular rate and rhythm , ABDOMEN: Soft , no tenderness EXTREMITIES: No edema feet - Labs CBC & Chem 7: 05/06/24 11:59 05/10/24 07:26 Labs: Abnormal Lab Results - Last 24 Hours (Table) 05/09/24 05/09/24 05/10/24 Range/Units 09:41 23:50 07:26 APTT 39.7 H (22.0-30.0) sec BUN 21 H (9-20) mg/dL Urine Protein Trace H (Negative) Urine Blood Large H (Negative) Ur Leukocyte Esterase Large H (Negative) Urine RBC >182 H (0-5) /hpf Urine WBC 38 H (0-5) /hpf Amorphous Sediment Few H (None) /hpf Urine Bacteria Occasional H (None) /hpf Hyaline Casts 23 H (0-2) /lpf Urine Mucus Rare H (None) /hpf Microbiology - Last 24 Hours (Table) 05/06/24 14:24 Blood Culture Gram Stain - Preliminary Blood Blood Culture - Preliminary Staphylococcus epidermidis Molecular ID Assessment and Plan (1) Positive blood culture Current Visit: Yes Status: Acute Code(s): R78.81 - BACTEREMIA SNOMED Code(s): 913054979 (2) Urinary tract infection Current Visit: Yes Status: Acute Code(s): N39.0 - URINARY TRACT INFECTION, SITE NOT SPECIFIED SNOMED Code(s): 63780005 Plan: 1patient presented to hospital with lower abdominal pain hide dark urine he did have urine retention requiring Mcneil catheter placement patient did have fever elevated white count meeting criteria for SIRS possible sepsis related to the UTI likely from to the gram-negative pathogen though initial urine culture have been reported negative. 2patient did have positive blood culture with gram-positive cocci with staph epi likely related to skin contamination blood culture has been repeated 3repeat UA is positive cultures are pending continue with Dionnahidenilson Family at the bedside question answered Dictation was produced using [employer] dictation software. please excuse any grammatical, word or spelling errors. Time with Patient: Less than 30
--- NOTE | 2024-05-10 13:05 | P.PN ---
Subjective HISTORY OF PRESENT ILLNESS: 05/07/2024. Per Dr. Garay 88-year-old who is new to our medical system. Patient is not able to provide any medical history because of his encephalopathy and prior history of dementia. History is obtained from medical charts. Apparently patient was having dark urine, lower abdominal pain. This was the reason for presentation to the hospital. On admission he was noticed to be in atrial fibrillation with RVR. He also had elevation of troponin enzyme 0.04, 0.106. 05/08/2024 Patient examined this morning at the bedside. Patient currently denies any chest pain or pressure. He denies shortness of breath. He remains on IV heparin. Telemetry reveals atrial fibrillation in the 90s. Blood cultures are positive for gram-positive cocci in clusters. 05/09/2024 Patient examined this morning at the bedside. Patient currently denies chest pain or pressure. He denies shortness of breath. Vital signs are stable. He remains on IV heparin. Telemetry reveals atrial fibrillation with controlled ventricular rate. Echocardiogram completed revealing ejection fraction 50 to 55%, mild pulmonary hypertension, mild mitral regurgitation, mild tricuspid regurgitation. 05/10/2024 Patient examined this morning at the bedside. Patient currently denies chest pain or pressure. Denies shortness of breath. Patient remains in atrial fibrillation with controlled ventricular rate. Blood cultures finalized revea ling Staph epidermidis. Repeat cultures pending. PHYSICAL EXAM: VITAL SIGNS: Reviewed. GENERAL: Well-developed in no acute distress. NECK: Supple. No JVD or thyromegaly LUNGS: Respirations even and unlabored. Lungs essentially clear to auscultation bilaterally. HEART: Irregular rate and rhythm. S1 and S2 heard. EXTREMITIES: Normal range of motion. No clubbing or cyanosis. Peripheral pulses intact. No lower extremity edema ASSESSMENT: Atrial fibrillation with RVR, duration unknown, possibly new onset Elevated troponin, suspect type II VT secondary to oxygen supply/demand mismatch Bacteremia, finalized Staph epidermidis likely skin contamination, repeat cultures pending Urinary tract infection Metabolic encephalopathy History of dementia History of Parkinson's disease PLAN: Continue current cardiac medications No plans for inpatient ischemic workup/cardiac catheterization Patient is stable for discharge to [facility] from a cardiac standpoint We will sign off. Please reconsult if needed. Nurse practitioner note has been reviewed by physician. Signing provider agrees with the documented findings, assessment, and plan of care documented by PON[employer] WORKER as a scribe. Objective - Vital Signs Vital signs: Vital Signs Temp 97.3 F L 05/10/24 11:48 Pulse 86 05/10/24 11:48 Resp 18 05/10/24 11:48 BP 111/69 05/10/24 11:48 Pulse Ox 91 L 05/10/24 11:48 FiO2 Intake & Output 05/09/24 05/10/24 05/10/24 18:59 06:59 18:59 Intake Total 490 20 10 Output Total 1150 1200 500 Balance -660 1180 -490 Weight 72.5 kg Intake: IV 10 20 10 Invasive Line 2 10 20 10 Oral 480 Output: Urine 1150 1200 500 Other: Voiding Method Indwelling Catheter Indwelling Catheter Indwelling Catheter - Labs CBC & Chem 7: 05/06/24 11:59 05/10/24 07:26 Labs: Abnormal Lab Results - Last 24 Hours (Table) 05/09/24 05/10/24 Range/Units 23:50 07:26 BUN 21 H (9-20) mg/dL Urine Protein Trace H (Negative) Urine Blood Large H (Negative) Ur Leukocyte Esterase Large H (Negative) Urine RBC >182 H (0-5) /hpf Urine WBC 38 H (0-5) /hpf Amorphous Sediment Few H (None) /hpf Urine Bacteria Occasional H (None) /hpf Hyaline Casts 23 H (0-2) /lpf Urine Mucus Rare H (None) /hpf Microbiology - Last 24 Hours (Table) 05/06/24 14:24 Blood Culture Gram Stain - Preliminary Blood Blood Culture - Preliminary Staphylococcus epidermidis Molecular ID
[2024-05-11 08:20] LABS: Basophils % (A) 0 %; Eosinophils # (A) 0.3 k/uL (0-0.7); Eosinophils % (A) 4 %; HCT 41.2 % (39.0-53.0); Hypochromasia Slight; Lymphocytes # (A) 0.7 k/uL (1.0-4.8); Lymphocytes % (A) 9 %; MCH 31.1 pg (25.0-35.0); MCHC 31.6 g/dL (31.0-37.0); MCV 98.2 fL (80.0-100.0); Mean Platelet Volume 7.1; Monocytes # (A) 0.7 k/uL (0-1.0); Monocytes % (A) 9 %; Neutrophils # (A) 5.5 k/uL (1.3-7.7); Neutrophils % (A) 75 %; Platelet Count 253 k/uL (150-450); RBC 4.19 m/uL (4.30-5.90); RDW 14.2 % (11.5-15.5); WBC 7.2 k/uL (3.8-10.6)
[2024-05-11 08:30] LABS: African American GFR (CKD) 75 (>60 ml/min/1.73 sqM); Anion Gap 6 mmol/L; Blood Urea Nitrogen 20 mg/dL (9-20); Calcium 9.2 mg/dL (8.4-10.2); Carbon Dioxide 29 mmol/L (22-30); Chloride 103 mmol/L (98-107); Glucose 117 mg/dL (74-99); Magnesium 1.9 mg/dL (1.6-2.3); Non-African American GFR(CKD) 65 (>60 ml/min/1.73 sqM); Potassium 3.8 mmol/L (3.5-5.1); Sodium 138 mmol/L (137-145)
--- NOTE | 2024-05-11 13:37 | P.PN ---
Alex Dias is an 88-year-old male patient with a history of polio syndrome. He previously was being treated for hypertension hyperlipidemia. Several days ago he became dizzy and had fallen was not able to get up and walk very well. He was found to have a UTI along with A-fib with RVR. Initial troponins were abnormal and he appeared to have a type II myocardial infarction. May 10, 2024: He is resting comfortably. He is without complaint. He has a Mcneil catheter to gravity. His family is at bedside. Before this he ambulated with a walker. He is not able to get out of bed or ambulate at all at this time. He like him to go to [facility]. Most recent laboratory chemistries are normal. Alysis done yesterday showed large leuks negative nitrates minimal squamous epithelial cells. Blood cultures are positive for staph epidermis, also showed this. Infectious disease has been consulted. Cardiology have cleared him from their point of view. Plan on amlodipine for heart rate blood pressure control, apixaban for anticoagulation, aspirin for antiplatelet effect, atorvastatin for hyperlipidemia, ceftriaxone for antibiotic coverage, and meto prolol for heart rate control. 05/11/2024: Patient remains on Rocephin. This is for UTI and positive blood cultures. Infectious diseases following him. Cardiology is also following him for atrial fibrillation and suspected type II SC. He has ongoing Mcneil catheter, they inadvertently removed it last night, but he was unable to void. A urology consult is pending. His is at bedside. He denies any chest pain pressure shortness of breath. Is been accepted to [facility] for ECF. Objective - Vital Signs Vital signs: Vital Signs Temp 97.4 F L 05/11/24 12:25 Pulse 72 05/11/24 12:25 Resp 18 05/11/24 12:25 BP 109/69 05/11/24 12:25 Pulse Ox 98 05/11/24 12:25 FiO2 Intake & Output 05/10/24 05/11/24 05/11/24 18:59 06:59 18:59 Intake Total 10 368 Output Total 1100 600 850 Balance -1090 -600 -482 Weight 70.5 kg Intake: IV 10 10 Invasive Line 2 10 10 Oral 358 Output: Urine 1100 600 850 Other: Voiding Method Indwelling Catheter Indwelling Catheter - Exam General: The patient is awake and alert, elderly male lying supine in bed. Family is at bedside Neck: The neck is supple, there is no thyromegaly, lymphadenopathy, tenderness or JVD. Cardiovascular: S1S2 is normal, There is a regular rate and rhythm. 1/6 systolic murmur, no rub or gallop is appreciated. Respiratory: Lungs are clear to auscultation bilaterally, respirations are non-labored, breath sounds are equal. Gastrointestinal: Soft, non-distended, non-tender abdomen without masses or organomegaly noted. There is no rebound or guarding present. Bowel sounds are unremarkable. : Mcneil catheter to gravity, gross hematuria noted Musculoskeletal: Normal ROM, no tenderness, There is no pedal edema. There is no calf tenderness or swelling. No cords were appreciated. Neurological: CN II-XII intact, there are no obvious motor or sensory deficits. Coordination appears grossly intact. Speech is normal. Skin: Skin is warm and dry and no rashes or lesions are noted. - Labs CBC & Chem 7: 05/11/24 07:44 05/11/24 07:44 Labs: Abnormal Lab Results - Last 24 Hours (Table) 05/11/24 05/11/24 Range/Units 07:44 07:44 RBC 4.19 L (4.30-5.90) m/uL Lymphocytes # 0.7 L (1.0-4.8) k/uL Glucose 117 H (74-99) mg/dL Microbiology - Last 24 Hours (Table) 05/09/24 23:50 Urine Culture - Final Urine,Voided 05/09/24 12:27 Blood Culture - Preliminary Blood 05/06/24 14:24 Blood Culture Gram Stain - Final Blood Blood Culture - Final Coagulase Negative Staph Staphylococcus epidermidis Molecular ID Assessment and Plan (1) Cystitis Current Visit: Yes Status: Acute Code(s): N30.90 - CYSTITIS, UNSPECIFIED WITHOUT HEMATURIA SNOMED Code(s): 54323277 (2) Debility Current Visit: Yes Status: Acute Code(s): R53.81 - OTHER MALAISE SNOMED Code(s): 04798765 (3) Gait abnormality Current Visit: Yes Status: Acute Code(s): R26.9 - UNSPECIFIED ABNORMALITIES OF GAIT AND MOBILITY SNOMED Code(s): 38427748 (4) Atrial fibrillation with rapid ventricular response Current Visit: Yes Status: Acute Code(s): I48.91 - UNSPECIFIED ATRIAL FIBRILLATION SNOMED Code(s): 146488798609246 (5) New onset a-fib Current Visit: Yes Status: Acute Code(s): I48.91 - UNSPECIFIED ATRIAL FIBRILLATION SNOMED Code(s): 07867243 (6) Non-ST elevated myocardial infarction (non-STEMI) Current Visit: Yes Status: Acute Code(s): I21.4 - NON-ST ELEVATION (NSTEMI) MYOCARDIAL INFARCTION SNOMED Code(s): 37539790 (7) Positive blood culture Current Visit: Yes Status: Acute Code(s): R78.81 - BACTEREMIA SNOMED Code(s): 582037357 (8) Post-polio syndrome Current Visit: Yes Status: Acute Code(s): G14 - POSTPOLIO SYNDROME SNOMED Code(s): 17356719 (9) Urinary retention Current Visit: Yes Status: Acute Code(s): R33.9 - RETENTION OF URINE, UNSPECIFIED SNOMED Code(s): 394072639 Plan: Will consult urology regarding urinary retention, will ask infectious disease about ongoing antibiotics. Expect ECF transfer tomorrow, start on trial of tamsulosin and monitor his blood pressure closely. He will be reevaluated in 24 hours for expected ECF discharge
[2024-05-11] MEDS: TAMSULOSIN 0.4 MG CAP.ER.24H PO SCH (17:04)
[2024-05-12 06:49] LABS: Basophils % (A) 1 %; Eosinophils # (A) 0.3 k/uL (0-0.7); Eosinophils % (A) 5 %; HCT 34.9 % (39.0-53.0); HGB 11.2 gm/dL (13.0-17.5); Hypochromasia Slight; Lymphocytes # (A) 0.8 k/uL (1.0-4.8); Lymphocytes % (A) 11 %; MCH 31.6 pg (25.0-35.0); MCHC 31.9 g/dL (31.0-37.0); MCV 98.9 fL (80.0-100.0); Mean Platelet Volume 7.3; Monocytes # (A) 0.7 k/uL (0-1.0); Monocytes % (A) 10 %; Neutrophils # (A) 4.9 k/uL (1.3-7.7); Neutrophils % (A) 71 %; Platelet Count 221 k/uL (150-450); RBC 3.53 m/uL (4.30-5.90); RDW 14.3 % (11.5-15.5); WBC 6.9 k/uL (3.8-10.6)
[2024-05-12 08:18] VITALS: TEMP 97.7
[2024-05-12 11:08] VITALS: BMI 24.1
--- NOTE | 2024-05-12 11:48 | P.DS ---
Providers Date of admission: 05/06/24 14:54 Expected date of discharge: 05/12/24 Attending physician: Bk Aponte Consults: 05/09/24 10:23 Consult Physician Routine Consulting Provider: Bryan Malik Consult Reason/Comments: + blood cultures Do you want consulting provider notified?: Yes 05/11/24 13:33 Consult Physician Routine Consulting Provider: Sigifredo Martinez Consult Reason/Comments: urinary retention, hematuria Do you want consulting provider notified?: Yes Primary care physician: Bk Aponte - Discharge Diagnosis(es) (1) Cystitis Current Visit: Yes Status: Acute (2) Debility Current Visit: Yes Status: Acute (3) Gait abnormality Current Visit: Yes Status: Acute (4) Atrial fibrillation with rapid ventricular response Current Visit: Yes Status: Acute (5) New onset a-fib Current Visit: Yes Status: Acute (6) Non-ST elevated myocardial infarction (non-STEMI) Current Visit: Yes Status: Acute (7) Positive blood culture Current Visit: Yes Status: Acute (8) Post-polio syndrome Current Visit: Yes Status: Acute (9) Urinary retention Current Visit: Yes Status: Acute Hospital Course: Arun is an 88-year-old male patient with a history of polio syndrome. He previously was being treated for hypertension hyperlipidemia. Several days ago he became dizzy and had fallen was not able to get up and walk very well. He was found to have a UTI along with A-fib with RVR. Initial troponins were abnormal and he appeared to have a type II myocardial infarction. May 10, 2024: He is resting comfortably. He is without complaint. He has a Mcneil catheter to gravity. His family is at bedside. Before this he ambulated with a walker. He is not able to get out of bed or ambulate at all at this time. He like him to go to [facility]. Most recent laboratory chemistries are normal. Alysis done yesterday showed large leuks negative nitrates minimal squamous epithelial cells. Blood cultures are positive for staph epidermis, also showed this. Infectious disease has been consulted. Cardiology have cleared him from their point of view. Plan on amlodipine for heart rate blood pressure control, apixaban for anticoagulation, aspirin for antiplatelet effect, atorvastatin for hyperlipidemia, ceftriaxone for antibiotic coverage, and metoprolol for heart rate control. 05/11/2024: Patient remains on Rocephin. This is for UTI and positive blood cultures. Infectious diseases following him. 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 He has ongoing Mcneil catheter, they inadvertently removed it last night, but he was unable to void. A urology consult is pending. His is at bedside. He denies any chest pain pressure shortness of breath. Is been accepted to [facility] for ECF. 05/12/2024: Patient will be discharged to SNF on Ceftin per infectious disease. His Mcneil catheter remain in place. Dr. Martinez will see him before he is discharged for a followed up plan regarding his urinary retention and UTI. He had a type II myocardial infarction most likely due to the cystitis. He has known atrial fibrillation. He has medical debility after his hospitalization. He has a history of polio syndrome as well. His family is at bedside and questions were answered. I will see him myself at [facility] in the next several days. Patient Condition at Discharge: Fair Plan - Discharge Summary Discharge Rx Participant: No New Discharge Prescriptions: New cefuroxime axetiL [Ceftin] 500 mg PO BID 5 Days #10 tab Apixaban [Eliquis] 5 mg PO BID tab Aspirin [Adult Low Dose Aspirin EC] 81 mg PO DAILY #30 tab Tamsulosin [Flomax] 0.4 mg PO PC-BRKFST cap Continue Metoprolol Succinate [Toprol XL] 50 mg PO DAILY amLODIPine [Norvasc] 5 mg PO DAILY Lovastatin [Mevacor] 20 mg PO HS Discharge Medication List Lovastatin [Mevacor] 20 mg PO HS 05/06/24 [History] Metoprolol Succinate [Toprol XL] 50 mg PO DAILY 05/06/24 [History] amLODIPine [Norvasc] 5 mg PO DAILY 05/06/24 [History] Apixaban [Eliquis] 5 mg PO BID tab 05/12/24 [Rx] Aspirin [Adult Low Dose Aspirin EC] 81 mg PO DAILY #30 tab 05/12/24 [Rx] Tamsulosin [Flomax] 0.4 mg PO PC-BRKFST cap 05/12/24 [Rx] cefuroxime axetiL [Ceftin] 500 mg PO BID 5 Days #10 tab 05/12/24 [Rx] Follow up Appointment(s)/Referral(s): Bk Aponte Jr, DO [Primary Care Provider] - 3 Weeks (Upon discharge from [facility]) Bethany Ho, [NON-STAFF] - 05/12/24 Harsha Pardo MD [STAFF PHYSICIAN] - 3 Days (At [facility]) Sigifredo Martinez MD [STAFF PHYSICIAN] - 1 Week Discharge Disposition: TRANSFER TO SNF/ECF
--- NOTE | 2024-05-12 14:26 | P.GSCN ---
History of Present Illness Consult date: 05/12/24 Reason for Consult: Hematuria, urinary retention Requesting physician: Bk Aponte Jr History of present illness: The patient is an 88-year-old white male with a medical history significant for hypertension, hyperlipidemia, A-fib with RVR, and polio syndrome. Urinalysis obtained at the time of admission showed evidence of a UTI, though the urine culture is negative. He has an indwelling Mcneil catheter for urinary retention. He was noted yesterday to have hematuria, which today is somewhat improved. He has sustained a suspected type II [place]. He is being transferred to [facility] for rehab later today. He is a vague historian when asked about pre-existing voiding dysfunction. His family indicates that he sometimes holds his urine for an extended period of time. He denies any prior history of UTIs or urolithiasis, and has never been told he has an enlarged prostate. Review of Systems - Genitourinary Reports as per HPI Past Medical History Additional Past Medical History / Comment(s): polio, possible dementia History of Any Multi-Drug Resistant Organisms: None Reported Past Surgical History: Appendectomy Additional Past Surgical History / Comment(s): knee replacement Past Psychological History: No Psychological Hx Reported Smoking Status: Never smoker Past Alcohol Use History: None Reported Past Drug Use History: None Reported Medications and Allergies Home Medications Medication Instructions Recorded Confirmed Type Lovastatin [Mevacor] 20 mg PO HS 05/06/24 05/06/24 History Metoprolol Succinate [Toprol XL] 50 mg PO DAILY 05/06/24 05/06/24 History amLODIPine [Norvasc] 5 mg PO DAILY 05/06/24 05/06/24 History Apixaban [Eliquis] 5 mg PO BID tab 05/12/24 Rx Aspirin [Adult Low Dose Aspirin EC] 81 mg PO DAILY #30 tab 05/12/24 Rx Tamsulosin [Flomax] 0.4 mg PO PC-BRKFST cap 05/12/24 Rx cefuroxime axetiL [Ceftin] 500 mg PO BID 5 Days #10 tab 05/12/24 Rx Allergies Allergy/AdvReac Type Severity Reaction Status Date / Time No Known Allergies Allergy Verified 05/06/24 14:28 Surgical - Exam Vital Signs Temp Pulse Resp BP Pulse Ox 100.7 F H 147 H 20 108/78 95 05/06/24 11:22 05/06/24 11:22 05/06/24 11:22 05/06/24 11:22 05/06/24 11:22 - General well developed, well nourished, no distress - Respiratory normal respiratory effort - Abdomen Abdomen: soft, non tender, no guarding, no rigid, no rebound - Genitourinary normal penis with no external lesions, testicles non-tender - Psychiatric oriented to time, oriented to person, oriented to place, speech is normal, memory intact Results - Labs 05/12/24 06:16 05/11/24 07:44 Abnormal Lab Results - Last 24 Hours (Table) 05/11/24 05/11/24 05/12/24 Range/Units 07:44 07:44 06:16 RBC 4.19 L 3.53 L (4.30-5.90) m/uL Hgb 11.2 L (13.0-17.5) gm/dL Hct 34.9 L (39.0-53.0) % Lymphocytes # 0.7 L 0.8 L (1.0-4.8) k/uL Glucose 117 H (74-99) mg/dL Microbiology - Last 24 Hours (Table) 05/09/24 12:27 Blood Culture - Preliminary Blood 05/09/24 23:50 Urine Culture - Final Urine,Voided Diabetes panel 05/11/24 Range/Units 07:44 Sodium 138 (137-145) mmol/L Potassium 3.8 (3.5-5.1) mmol/L Chloride 103 (98-107) mmol/L Carbon Dioxide 29 (22-30) mmol/L BUN 20 (9-20) mg/dL Creatinine 1.04 (0.66-1.25) mg/dL Glucose 117 H (74-99) mg/dL Calcium 9.2 (8.4-10.2) mg/dL Calcium panel 05/11/24 Range/Units 07:44 Calcium 9.2 (8.4-10.2) mg/dL Pituitary panel 05/11/24 Range/Units 07:44 Sodium 138 (137-145) mmol/L Potassium 3.8 (3.5-5.1) mmol/L Chloride 103 (98-107) mmol/L Carbon Dioxide 29 (22-30) mmol/L BUN 20 (9-20) mg/dL Creatinine 1.04 (0.66-1.25) mg/dL Glucose 117 H (74-99) mg/dL Calcium 9.2 (8.4-10.2) mg/dL Adrenal panel 05/11/24 Range/Units 07:44 Sodium 138 (137-145) mmol/L Potassium 3.8 (3.5-5.1) mmol/L Chloride 103 (98-107) mmol/L Carbon Dioxide 29 (22-30) mmol/L BUN 20 (9-20) mg/dL Creatinine 1.04 (0.66-1.25) mg/dL Glucose 117 H (74-99) mg/dL Calcium 9.2 (8.4-10.2) mg/dL Assessment and Plan (1) Urinary retention Current Visit: Yes Status: Acute Code(s): R33.9 - RETENTION OF URINE, UNSPECIFIED SNOMED Code(s): 977410277 Plan: The patient will be transferred to [facility] later today with an indwelling Mcneil catheter. He is receiving tamsulosin. He will follow-up with me as an outpatient in 1 to 2 weeks. I will ask that the Mcneil catheter be removed 8 hours prior to that appointment for a voiding trial. Thank you for allow me to participate Mr. Baron's care. Time with Patient: Greater than 30
[2024-05-12 15:42] VITALS: BP 114/72; PULSE 103; RESP 17
--- NOTE | 2024-05-13 14:11 | P.PN ---
Subjective Progress Note Date: 05/11/24 Principal diagnosis: Reason for follow-up is UTI and positive blood culture Patient is a 88-year-old male with a past medical history significant for polio, possible dementia, patient was brought into the hospital for evaluation lower abdominal pain and dysuria has been diagnosed with a UTI also required Mcneil catheter for urinary retention did have a positive blood culture prompting this consultation On today's evaluation that is 05/11/2024, patient has been afebrile, patient is breathing comfortably and is currently on room air, patient denies having any significant cough no chest pain, patient denies nausea vomiting or diarrhea and no abdominal pain, mention feeling better. Patient white count 7.2, creatinine 1.04 Objective - Vital Signs Vital signs: Vital Signs Temp 97.4 F L 05/11/24 12:25 Pulse 72 05/11/24 12:25 Resp 18 05/11/24 12:25 BP 109/69 05/11/24 12:25 Pulse Ox 98 05/11/24 12:25 FiO2 Intake & Output 05/10/24 05/11/24 05/11/24 18:59 06:59 18:59 Intake Total 10 250 Output Total 1100 600 850 Balance -1090 -600 -600 Weight 70.5 kg Intake: IV 10 10 Invasive Line 2 10 10 Oral 240 Output: Urine 1100 600 850 Other: Voiding Method Indwelling Catheter Indwelling Catheter - Exam GENERAL DESCRIPTION: An elderly male lying in bed in no distress RESPIRATORY SYSTEM: Unlabored breathing , decreased breath sounds at bases HEART: S1 S2 regular rate and rhythm , ABDOMEN: Soft , no tenderness EXTREMITIES: No edema feet - Labs CBC & Chem 7: 05/12/24 06:16 05/11/24 07:44 Labs: Abnormal Lab Results - Last 24 Hours (Table) 05/11/24 05/11/24 Range/Units 07:44 07:44 RBC 4.19 L (4.30-5.90) m/uL Lymphocytes # 0.7 L (1.0-4.8) k/uL Glucose 117 H (74-99) mg/dL Microbiology - Last 24 Hours (Table) 05/09/24 23:50 Urine Culture - Final Urine,Voided 05/09/24 12:27 Blood Culture - Preliminary Blood 05/06/24 14:24 Blood Culture Gram Stain - Final Blood Blood Culture - Final Coagulase Negative Staph Staphylococcus epidermidis Molecular ID Assessment and Plan (1) Positive blood culture Status: Acute Code(s): R78.81 - BACTEREMIA SNOMED Code(s): 155914018 (2) Urinary tract infection Status: Acute Code(s): N39.0 - URINARY TRACT INFECTION, SITE NOT SPECIFIED SNOMED Code(s): 38725829 Plan: 1patient presented to hospital with lower abdominal pain hide dark urine he did have urine retention requiring Mcneil catheter placement patient did have fever elevated white count meeting criteria for SIRS possible sepsis related to the UTI likely from to the gram-negative pathogen though initial urine culture have been reported negative. 2patient did have positive blood culture with gram-positive cocci with staph epi likely related to skin contamination blood culture has been repeated which are negative so far 3repeat UA is positive cultures are pending patient to continue with Rocephin. Family at the bedside question answered Dictation was produced using [employer] dictation software. please excuse any grammatical, word or spelling errors. Time with Patient: Less than 30
--- NOTE | 2024-05-13 14:11 | P.PN ---
Subjective Progress Note Date: 05/12/24 Principal diagnosis: Reason for follow-up is UTI and positive blood culture Patient is a 88-year-old male with a past medical history significant for polio, possible dementia, patient was brought into the hospital for evaluation lower abdominal pain and dysuria has been diagnosed with a UTI also required Mcneil catheter for urinary retention did have a positive blood culture prompting this consultation On today's evaluation that is 05/12/2024, Patient is afebrile this morning patient denies having any chest pain shortness of breath or cough, the patient is currently on room air, patient denies any abdominal pain no diarrhea no nausea no vomiting. Patient white count 6.9 blood culture repeat negative Objective - Vital Signs Vital signs: Vital Signs Temp 97.7 F 05/12/24 08:12 Pulse 72 05/12/24 11:25 Resp 16 05/12/24 11:25 BP 108/66 05/12/24 11:25 Pulse Ox 98 05/12/24 11:25 FiO2 Intake & Output 05/11/24 05/12/24 05/12/24 18:59 06:59 18:59 Intake Total 1026 10 180 Output Total 850 300 950 Balance 176 290 -770 Weight 78.5 kg 78.5 kg Intake: IV 10 10 Invasive Line 2 10 Invasive Line 3 10 Oral 1016 180 Output: Urine 850 300 950 Other: Voiding Method Indwelling Catheter Indwelling Catheter Indwelling Catheter - Exam GENERAL DESCRIPTION: An elderly male lying in bed in no distress RESPIRATORY SYSTEM: Unlabored breathing , decreased breath sounds at bases HEART: S1 S2 regular rate and rhythm , ABDOMEN: Soft , no tenderness EXTREMITIES: No edema feet - Labs CBC & Chem 7: 05/12/24 06:16 05/11/24 07:44 Labs: Abnormal Lab Results - Last 24 Hours (Table) 05/12/24 Range/Units 06:16 RBC 3.53 L (4.30-5.90) m/uL Hgb 11.2 L (13.0-17.5) gm/dL Hct 34.9 L (39.0-53.0) % Lymphocytes # 0.8 L (1.0-4.8) k/uL Microbiology - Last 24 Hours (Table) 05/09/24 12:27 Blood Culture - Preliminary Blood 05/09/24 23:50 Urine Culture - Final Urine,Voided Assessment and Plan (1) Positive blood culture Status: Acute Code(s): R78.81 - BACTEREMIA SNOMED Code(s): 895087128 (2) Urinary tract infection Status: Acute Code(s): N39.0 - URINARY TRACT INFECTION, SITE NOT SPECIFIED SNOMED Code(s): 67779883 Plan: 1patient presented to hospital with lower abdominal pain hide dark urine he did have urine retention requiring Mcneil catheter placement patient did have fever elevated white count meeting criteria for SIRS possible sepsis related to the UTI likely from to the gram-negative pathogen though initial urine culture have been reported negative. 2patient did have positive blood culture with gram-positive cocci with staph epi likely related to skin contamination blood culture has been repeated which are negative so far 3repeat UA is positive cultures has been negative keeping in mind patient improved on Rocephin will finish therapy with a short course of oral Ceftin on discharge Dictation was produced using [employer] dictation software. please excuse any grammatical, word or spelling errors. Time with Patient: Less than 30
--- NOTE | 2024-05-15 08:53 | CDI ---
Documentation Clarification Form Date: 05/15/2024 08:38:24 AM From: Toya Farley Phone: Admit Date: 05/06/2024 02:54:00 PM Patient Name: Dwayne Baron Visit Number: [id number] Discharge Date: 05/12/2024 04:10:00 PM ATTENTION: The Clinical Documentation Specialists (CDI) and [facility] Coding Staff appreciate your assistance in clarifying documentation. Please respond to the clarification below the line at the bottom and electronically sign. The CDI & [facility] Coding staff will review the response and follow-up if needed. Please note: Queries are made part of the Legal Health Record. If you have any questions, please contact the author of this message via ITS. : Dawson Garay Your patient has the documented diagnosis of unspecified CHF is documented in consult note on 05/07 Additional information regarding the type of CHF is requested. History/Risk Factors: 88-year-old who is new to our medical system. Patient is not able to provide any medical history because of hisencephalopathyand prior history ofdementia , pmh include , HTN ,HLD ,Post-polio syndrome Clinical Indicators: On 05/07 consult note - MildCHFexacerbation On 05/08 pn - Patient examined this morning at the bedside. Patient currentlydenies any chest painorpressure. Hedeniesshortness of breath. He remains on IV heparin. Telemetryrevealsatrial fibrillationin the 90s.Blood cultures are positive for gram-positive cocci in clusters. VS/Pulse OX: temperature 100.7 F H Pulse Rate 147 H 119 H Pulse Rate [ 116 H Bar Assistant Respiratory 20 22 [id number] 102/81 O2 Sat by Pulse 95 96 Oximetry 13:26 13:32 Doctor/Provider Temperature 98.4 Pulse Rate 81 Echocardiogram Results: shows atrial fibrillation with rapid ventricular response at 155 bpm QRS is 85 QT interval 364 QTc is 351. Chest X Ray: on 05/06 Right lungatelectasiswith no acute cardiopulmonary disease/process. Echo transthoracic on 05/09 - Left Ventricle Left ventricular ejection fraction is estimated at 50-55 %.Small left ventricularcavity. Severely increased septal wall thickness. No obvious regional wall motionabnormalities. Right Ventricle Moderate right ventriculardilatation. Mildpulmonary hypertension. Echo transthoracic on 05/09 Treatment: Add aspirin 81 mg daily Continue current dose of metoprolol succinate 50 mg daily Continuetelemetry monitoring Increase atorvastatin to 40 mg at night Continue IV heparin In your professional opinion, can you please clarify the type of CHF if known? [ X ] Acute Systolic Heart Failure (reduced EF) [ ] Chronic Systolic Heart Failure (reduced EF) [ ] Acute on Chronic Systolic Heart Failure (reduced EF) [ ] Acute Diastolic Heart Failure (preserved EF) [ ] Chronic Diastolic Heart Failure (preserved EF) [ ] Acute on Chronic Diastolic Heart Failure (preserved EF) [ ] Acute Systolic & Diastolic Heart Failure [ ] Chronic Systolic & Diastolic Heart Failure [ ] Acute on Chronic Heart Failure Systolic & Diastolic Heart Failure [ ] Other, please specify [ ] Unable to determine (Template Last Revised: June 2020) MTDD
--- NOTE | 2024-05-18 14:14 | CDI ---
Documentation Clarification Form Date: 05/18/2024 12:06:05 PM From: Chrissy Thomas RN, CCDS Email: [email or web address] Admit Date: 05/06/2024 02:54:00 PM Patient Name: Dwayne Baron Visit Number: [id number] Discharge Date: 05/12/2024 04:10:00 PM ATTENTION: The Clinical Documentation Specialists (CDI) and [facility] Coding Staff appreciate your assistance in clarifying documentation. Please respond to the clarification below the line at the bottom and electronically sign. The CDI & [facility] Coding staff will review the response and follow-up if needed. Please note: Queries are made part of the Legal Health Record. If you have any questions, please contact the author of this message via ITS. Doctor Bk Aponte Possible sepsis was documented by ID. Additional clarification is requested. History/Risk Factors: A fib. Presented because he was having dark urine and complains of lower abdominal pain. Patient is a poor historian. Patient was unaware that he had a fever. Admitted with cystitis, type II NM and A fib with RVR. Clinical Indicators: 05/11 IM: "Patient remains on Rocephin. This is for UTI and positive blood cultures. Infectious disease is following him." 05/12 ID: "patient presented with lower abdominal pain, dark urine, urine retention requiring Mcneil catheter, fever and elevated white count. Meets criteria for SIRS, possible sepsis related to the UTI likely from gram-negative pathogen though initial urine culture have been reported negative. Patient did have positive blood culture with gram-positive cocci with staph epi likely related to skin contamination. Blood culture has been repeated which is negative so far." 05/06 VS: Temp 100.7 HR 147 RR 108/78-88/56 05/06-05/12 Labs: WBC 5.7-7.2-6.9; lactic acid 1.6; troponin 0.041-0.106; +UA Treatment: IV Rocephin 1gm x1 on 05/06; IV Rocephin 2gm Q24H 05/07-05/12; 1L 0.9 NS IV bolus x2 on 05/06 Please clarify if Sepsis was a valid diagnosis? [ ] No, Sepsis was ruled out [ ] Yes, Sepsis was ruled in as evidenced by [ ] Other (please specify diagnosis) [x ] Unable to determine he responded very quickly (Template Last Revised: October 2023) STIVEND
== END 2024-05-12 16:10 | DRG 280 ==
LOC: EC 11:21 → 3SCARD 14:54
PROVIDERS: ADMIT Family Medicine; ATTEND Family Medicine
DX: I48.19 Other persistent atrial fibrillation (principal); G93.41 Metabolic encephalopathy; I21.A1 Myocardial infarction type 2; I50.21 Acute systolic (congestive) heart failure; R78.81 Bacteremia; N30.91 Cystitis, unspecified with hematuria; G14 Postpolio syndrome; R26.9 Unspecified abnormalities of gait and mobility; I11.0 Hypertensive heart disease with heart failure; E78.5 Hyperlipidemia, unspecified; F02.80 Dementia in other diseases classified elsewhere, unspecified severity, without behavioral disturbance, psychotic disturbance, mood disturbance, and anxiety; G20.A1 Parkinson's disease without dyskinesia, without mention of fluctuations; I27.20 Pulmonary hypertension, unspecified; I08.1 Rheumatic disorders of both mitral and tricuspid valves; Z79.899 Other long term (current) drug therapy; Z79.01 Long term (current) use of anticoagulants; Z79.82 Long term (current) use of aspirin; Z96.659 Presence of unspecified artificial knee joint
CPT/HCPCS: 36415; 51701; 51798; 71046; 80048; 80053; 81001; 83605; 83735; 84443; 84484; 85025; 85610; 85730; 87040; 87086; 87636; 93005; 93306; 96361; 96365; 96366; 96367; 96375; 99291